=== PATIENT | female | born 1970 | race Caucasian/White ===

== ENCOUNTER 2017-10-28 12:25 | Inpatient (IN) | payer OTHER ==
[~2017-10-28] VITALS: Ht 149.9 cm; Wt 88.5 kg
[~2017-10-28 12:25] MED LIST: ADAL40PEN INJ; AMOX500 PO; ASPERCREME1 EACH TOP; ASPI81CH PO; B Complete1 EACH PO; CALCAVITD PO; CLON.1 PO; Cleocin HCl150 MG PO; DULO60 PO; ENOX30I INJ; ENOX40I SC; HYDACE5 PO; HYDMOR2 PO; IBUP600 PO; IBUP800 PO; LABE100; LABE200; LEFL20 PO; LISI5 PO; MEDR150I IM; MELO7.5 PO; METTREX2.5 PO; NAPR220; NAPR500 PO; NAPR550 PO; Norco 5-325 Ta1 EACH PO; Norco 7.5-3251 EACH PO; OXYC10TA19 PO; OXYC30 PO; PAROEX473 ML MM; PRED10 PO; PRED5 PO; PROM25 PO; Percocet 5-3251 EACH PO; SULF500 PO; TRAM50 PO; Ultram50 MG PO; Valium5 MG PO; ZESTORETIC 20-121 E1 PO; Zofran Odt4 MG PO
[2017-10-28 13:05] LABS: BASOPHILS ABSOLUTE AUTO 0.09 K/mm3 (0.00-0.23); BASOPHILS PERCENT AUTO 1 % (0-2); EOSINOPHILS ABSOLUTE AUTO 0.46 K/mm3 (0.00-0.68); EOSINOPHILS PERCENT AUTO 4 % (0-6); Hematocrit 38.9 % (33.0-51.0); Hemoglobin 12.7 g/dL (11.5-16.0); IMMATURE GRAN ABSOLUTE AUTO 0.06 K/mm3 (0.00-0.10); IMMATURE GRAN PERCENT AUTO 1 % (0-1); LYMPHOCYTES ABSOLUTE AUTO 2.15 K/mm3 (0.84-5.20); LYMPHOCYTES PERCENT AUTO 19 % (21-46); MONOCYTES PERCENT AUTO 5 % (4-13); Mean Corpuscular HGB 30.5 pg (26.0-34.0); Mean Corpuscular HGB Conc 32.6 g/dL (31.5-36.5); Mean Corpuscular Volume 93 fL (80-100); NEUTROPHILS ABSOLUTE AUTO 7.88 K/mm3 (1.96-9.15); NEUTROPHILS PERCENT AUTO 71 % (41-73); RDW Coefficient Variation 13.5 % (11.7-14.2); RDW Standard Deviation 45.8 fL (35.1-46.3); Red Blood Cell Count 4.17 M/mm3 (3.80-5.20); White Blood Cell Count 11.14 K/mm3 (4.00-11.30)
[2017-10-28 13:20] LABS: Alanine Aminotransfer (ALT/SGP 63 U/L (12-78); Albumin, Blood 3.7 g/dL (3.4-5.0); Albumin/Globulin Ratio 0.7 (0.8-1.8); Alk Phos 161 U/L (50-136); Anion Gap 11 mmol/L (6-16); Aspartate Aminotrans (AST/SGOT 38 U/L (12-37); Bilirubin, Total 0.3 mg/dL (0.1-1.0); Blood Urea Nitrogen 16 mg/dL (8-24); Bun/Creatinine Ratio 19.3 (12.0-20.0); CO2, Blood 23 mmol/L (21-32); Calcium, Blood 9.1 mg/dL (8.5-10.1); Chloride, Blood 106 mmol/L (98-108); Creatinine, Blood 0.83 mg/dL (0.40-1.00); Glomerular Filtration Rate >60 (60-); Glucose, Blood 112 mg/dL (70-99); Potassium, Blood 4.2 mmol/L (3.5-5.5); Sodium, Blood 140 mmol/L (136-145); Total Protein, Blood 8.7 g/dL (6.4-8.2); Troponin I <0.015 ng/mL (0.000-0.040)
[2017-10-28 13:26] LABS: Mean Platelet Volume 9.2 fL (9.1-12.4); Platelet Count 279 K/mm3 (150-400)
[2017-10-28 14:55] LABS: Source, Urine Clean Catch
[2017-10-28 14:57] LABS: Appearance, Urine Hazy (Clear); Bilirubin, Urine Neg (Neg); Blood, Urine 2+ (Neg); Color, Urine Yellow (P-Yellow); Glucose Qualitative, Urine Neg (Neg); Ketones, Urine Neg (Neg); Leukocyte Esterase, Urine Neg (Neg); Nitrite, Urine Neg (Neg); Protein, Urine 2+ (Neg); Urobilinogen, Urine NORM (Normal); pH, Urine 6.5 (5.0-8.0)
[2017-10-28 16:44] LABS: White Blood Cells, Urine 0-2 /hpf (0-5)
[2017-10-28 16:45] LABS: Squamous Epithelial Cells Mod /hpf (Few)
[2017-10-28 16:46] LABS: Bacteria Few /hpf
[2017-10-28] MEDS ORDERED: Prozac20 MG (19:39)
[2017-10-28] MEDS ORDERED: MELO7.5 PO (19:39)
[2017-10-29 02:04] LABS: BASOPHILS ABSOLUTE AUTO 0.05 K/mm3 (0.00-0.23); BASOPHILS PERCENT AUTO 0 % (0-2); EOSINOPHILS ABSOLUTE AUTO 0.03 K/mm3 (0.00-0.68); EOSINOPHILS PERCENT AUTO 0 % (0-6); Hematocrit 34.9 % (33.0-51.0); Hemoglobin 11.5 g/dL (11.5-16.0); IMMATURE GRAN ABSOLUTE AUTO 0.05 K/mm3 (0.00-0.10); IMMATURE GRAN PERCENT AUTO 0 % (0-1); LYMPHOCYTES ABSOLUTE AUTO 1.83 K/mm3 (0.84-5.20); LYMPHOCYTES PERCENT AUTO 16 % (21-46); MONOCYTES ABSOLUTE AUTO 0.71 K/mm3 (0.16-1.47); MONOCYTES PERCENT AUTO 6 % (4-13); Mean Corpuscular HGB 29.9 pg (26.0-34.0); Mean Corpuscular Volume 91 fL (80-100); Mean Platelet Volume 9.1 fL (9.1-12.4); NEUTROPHILS ABSOLUTE AUTO 8.46 K/mm3 (1.96-9.15); NEUTROPHILS PERCENT AUTO 76 % (41-73); Platelet Count 316 K/mm3 (150-400); RDW Coefficient Variation 13.7 % (11.7-14.2); RDW Standard Deviation 44.5 fL (35.1-46.3); Red Blood Cell Count 3.84 M/mm3 (3.80-5.20); White Blood Cell Count 11.13 K/mm3 (4.00-11.30)
[2017-10-29 02:09] LABS: Alanine Aminotransfer (ALT/SGP 50 U/L (12-78); Albumin, Blood 3.4 g/dL (3.4-5.0); Albumin/Globulin Ratio 0.8 (0.8-1.8); Alk Phos 129 U/L (50-136); Anion Gap 9 mmol/L (6-16); Aspartate Aminotrans (AST/SGOT 27 U/L (12-37); Bilirubin, Total 0.6 mg/dL (0.1-1.0); Blood Urea Nitrogen 17 mg/dL (8-24); CO2, Blood 26 mmol/L (21-32); Calcium, Blood 8.5 mg/dL (8.5-10.1); Chloride, Blood 104 mmol/L (98-108); Creatinine, Blood 0.77 mg/dL (0.40-1.00); Globulin, Blood 4.5 g/dL (2.2-4.0); Glomerular Filtration Rate >60 (60-); Glucose, Blood 95 mg/dL (70-99); Phosphorus, Blood 3.4 mg/dL (2.5-4.9); Potassium, Blood 3.6 mmol/L (3.5-5.5); Sodium, Blood 139 mmol/L (136-145); Total Protein, Blood 7.9 g/dL (6.4-8.2); Troponin I 0.024 ng/mL (0.000-0.040)
[2017-10-29 10:47] LABS: U Amphetamine Screen Not Detected; U Barbituate Screen Not Detected; U Benzodiazapine Screen Not Detected; U Buprenorphine Screen Not Detected; U Cannabinoids Screen DETECTED; U Cocaine Screen Not Detected; U Methadone Screen Not Detected; U Methamphetamine Screen Not Detected; U Opiates Screen Not Detected; U Oxycodone Screen Not Detected; U Phencyclidine Screen Not Detected; U Propoxyphene Screen Not Detected
[2017-10-30 05:47] LABS: Hematocrit 39.8 % (33.0-51.0); Hemoglobin 13.1 g/dL (11.5-16.0); Mean Corpuscular HGB 30.4 pg (26.0-34.0); Mean Corpuscular HGB Conc 32.9 g/dL (31.5-36.5); Mean Corpuscular Volume 92 fL (80-100); Mean Platelet Volume 9.1 fL (9.1-12.4); Platelet Count 304 K/mm3 (150-400); RDW Coefficient Variation 13.6 % (11.7-14.2); RDW Standard Deviation 46.2 fL (35.1-46.3); Red Blood Cell Count 4.31 M/mm3 (3.80-5.20); White Blood Cell Count 9.44 K/mm3 (4.00-11.30)
[2017-10-30 06:06] LABS: Anion Gap 9 mmol/L (6-16); Blood Urea Nitrogen 28 mg/dL (8-24); Bun/Creatinine Ratio 28.1 (12.0-20.0); CO2, Blood 28 mmol/L (21-32); Calcium, Blood 9.4 mg/dL (8.5-10.1); Chloride, Blood 100 mmol/L (98-108); Glomerular Filtration Rate >60 (60-); Glucose, Blood 94 mg/dL (70-99); Magnesium, Blood 2.3 mg/dL (1.6-2.4); Potassium, Blood 3.8 mmol/L (3.5-5.5); Sodium, Blood 137 mmol/L (136-145)
[2017-10-31 06:14] LABS: Very Low Density Lipoprot Chol 53 mg/dL (6-32)
[2017-10-31 06:15] LABS: Anion Gap 9 mmol/L (6-16); Blood Urea Nitrogen 40 mg/dL (8-24); Bun/Creatinine Ratio 28.8 (12.0-20.0); CHOL/HDL RATIO 6.2; CO2, Blood 30 mmol/L (21-32); Calcium, Blood 9.2 mg/dL (8.5-10.1); Chloride, Blood 96 mmol/L (98-108); Cholesterol 248 mg/dL (50-200); Creatinine, Blood 1.39 mg/dL (0.40-1.00); Glomerular Filtration Rate 43 (60-); Glucose, Blood 85 mg/dL (70-99); HDL Cholesterol 40 mg/dL (>39); LDL/HDL RATIO 3.9; Low Density Lipoprotein Chol 155 mg/dL (0-110); Potassium, Blood 3.5 mmol/L (3.5-5.5); Sodium, Blood 135 mmol/L (136-145); Triglycerides 265 mg/dL (30-160)
[2017-10-31] MEDS ORDERED: ASPI81CH PO (10:13)
[2017-10-31] MEDS ORDERED: ATOR40TA PO (10:14)
[2017-10-31] MEDS ORDERED: CARV6.25 PO (10:16)
[2017-10-31] MEDS ORDERED: ACETAMINOPHEN-1 EACH PO (10:19)
[2017-10-31] MEDS ORDERED: LISI20 PO (10:20)
[2017-10-31] MEDS ORDERED: SPIR25 PO (10:20)
[2017-10-31] MEDS ORDERED: TORSE20 PO (10:20)
[2017-11-01 06:28] LABS: Bun/Creatinine Ratio 29.9 (12.0-20.0); Calcium, Blood 9.2 mg/dL (8.5-10.1); Creatinine, Blood 1.54 mg/dL (0.40-1.00); Potassium, Blood 3.7 mmol/L (3.5-5.5)
[2017-11-01 11:26] LABS: Albumin, Blood 3.9 g/dL (3.4-5.0); Anion Gap 8 mmol/L (6-16); Blood Urea Nitrogen 46 mg/dL (8-24); Bun/Creatinine Ratio 28.4 (12.0-20.0); CO2, Blood 30 mmol/L (21-32); Calcium, Blood 9.2 mg/dL (8.5-10.1); Chloride, Blood 95 mmol/L (98-108); Creatinine, Blood 1.62 mg/dL (0.40-1.00); Glomerular Filtration Rate 36 (60-); Glucose, Blood 94 mg/dL (70-99); Magnesium, Blood 2.3 mg/dL (1.6-2.4); Phosphorus, Blood 5.4 mg/dL (2.5-4.9); Sodium, Blood 133 mmol/L (136-145)
[2017-11-01] MEDS ORDERED: SPIR25 PO (16:21)
== END 2017-11-01 18:17 | disposition home or self-care (01) | DRG 291 ==
LOC: ER 12:25 → MEDS 12:26 → PCU 12:26 → MEDS 10-29 16:52 → ENPENDDIS 10-31 08:43 → MEDS 11-01 18:17
PROVIDERS: Emergency Medicine; Family Medicine; Internal Medicine; Internal Medicine Cardiovascular Disease
DX: I11.0 Hypertensive heart disease with heart failure (principal); J96.00 Acute respiratory failure, unspecified whether with hypoxia or hypercapnia; N17.9 Acute kidney failure, unspecified; I16.0 Hypertensive urgency; I50.20 Unspecified systolic (congestive) heart failure; M06.9 Rheumatoid arthritis, unspecified; E78.5 Hyperlipidemia, unspecified; F32.9 Major depressive disorder, single episode, unspecified; E66.3 Overweight; Z68.39 Body mass index [BMI] 39.0-39.9, adult; I27.20 Pulmonary hypertension, unspecified; I34.0 Nonrheumatic mitral (valve) insufficiency; I42.0 Dilated cardiomyopathy; F41.9 Anxiety disorder, unspecified; R25.2 Cramp and spasm; T50.0X5A Adverse effect of mineralocorticoids and their antagonists, initial encounter; T50.1X5A Adverse effect of loop [high-ceiling] diuretics, initial encounter; T46.4X5A Adverse effect of angiotensin-converting-enzyme inhibitors, initial encounter; Y92.239 Unspecified place in hospital as the place of occurrence of the external cause; Z91.14 Patient's other noncompliance with medication regimen
CPT/HCPCS: 36415; 71046; 80048; 80053; 80061; 80069; 81001; 83735; 83880; 84100; 84132; 84484; 85025; 85027; 87493; 93005; 93010; 93306; 96374; 96375; 99285; J1650; J1940

== ENCOUNTER 2019-04-16 11:26 | Emergency (ER) | payer OTHER ==
[~2019-04-16] VITALS: Ht 152.4 cm; Wt 95.2 kg
[~2019-04-16 11:26] MED LIST changes: +ACETAMINOPHEN-1 EACH PO; +ATOR40TA PO; +CARV6.25 PO; +LISI20 PO; +Prozac20 MG; +SPIR25 PO; +TORSE20 PO
== END 2019-04-16 12:58 | disposition home or self-care (01) ==
LOC: ER 11:26
DX: H40.211 Acute angle-closure glaucoma, right eye (principal); F32.9 Major depressive disorder, single episode, unspecified; Z79.899 Other long term (current) drug therapy
CPT/HCPCS: 96372; 99284-25; J1170

== ENCOUNTER 2019-04-28 11:28 | Emergency (ER) | payer OTHER ==
[~2019-04-28] VITALS: Ht 685.8 cm; Wt 210.0 kg
[2019-04-28 13:19] LABS: BASOPHILS ABSOLUTE AUTO 0.05 K/mm3 (0.00-0.23); BASOPHILS PERCENT AUTO 1 % (0-2); EOSINOPHILS ABSOLUTE AUTO 0.66 K/mm3 (0.00-0.68); EOSINOPHILS PERCENT AUTO 10 % (0-6); Hematocrit 42.4 % (33.0-51.0); Hemoglobin 13.6 g/dL (11.5-16.0); IMMATURE GRAN ABSOLUTE AUTO 0.01 K/mm3 (0.00-0.10); IMMATURE GRAN PERCENT AUTO 0 % (0-1); LYMPHOCYTES PERCENT AUTO 24 % (21-46); MONOCYTES ABSOLUTE AUTO 0.42 K/mm3 (0.16-1.47); MONOCYTES PERCENT AUTO 6 % (4-13); Mean Corpuscular HGB 29.8 pg (26.0-34.0); Mean Corpuscular HGB Conc 32.1 g/dL (31.5-36.5); Mean Corpuscular Volume 93 fL (80-100); Mean Platelet Volume 9.4 fL (9.1-12.4); NEUTROPHILS ABSOLUTE AUTO 3.81 K/mm3 (1.96-9.15); NEUTROPHILS PERCENT AUTO 58 % (41-73); Platelet Count 259 K/mm3 (150-400); RDW Coefficient Variation 12.3 % (11.7-14.2); RDW Standard Deviation 41.9 fL (35.1-46.3); Red Blood Cell Count 4.56 M/mm3 (3.80-5.20); White Blood Cell Count 6.55 K/mm3 (4.00-11.30)
[2019-04-28 13:45] LABS: Alanine Aminotransfer (ALT/SGP 178 U/L (12-78); Albumin, Blood 3.8 g/dL (3.4-5.0); Albumin/Globulin Ratio 0.8 (0.8-1.8); Alk Phos 172 U/L (50-136); Anion Gap 3 mmol/L (6-16); Aspartate Aminotrans (AST/SGOT 77 U/L (12-37); Bilirubin, Total 0.3 mg/dL (0.1-1.0); Blood Urea Nitrogen 16 mg/dL (8-24); Bun/Creatinine Ratio 19.2 (12.0-20.0); CO2, Blood 28 mmol/L (21-32); Chloride, Blood 109 mmol/L (98-108); Creatinine, Blood 0.83 mg/dL (0.40-1.00); Globulin, Blood 4.5 g/dL (2.2-4.0); Glomerular Filtration Rate >60 (60-); Glucose, Blood 87 mg/dL (70-99); Sodium, Blood 140 mmol/L (136-145); Total Protein, Blood 8.3 g/dL (6.4-8.2); Troponin I <0.015 ng/mL (0.000-0.040)
[2019-04-28] MEDS ORDERED: MELO7.5 (16:18)
[2019-04-28] MEDS ORDERED: LISI20 PO (16:18)
[2019-04-28] MEDS ORDERED: DULO60 PO (16:19)
== END 2019-04-28 16:46 | disposition home or self-care (01) ==
LOC: ER 11:28
PROVIDERS: Physician Assistant
DX: I10 Essential (primary) hypertension (principal); K08.89 Other specified disorders of teeth and supporting structures; M06.9 Rheumatoid arthritis, unspecified; F32.9 Major depressive disorder, single episode, unspecified; E78.5 Hyperlipidemia, unspecified; Z79.899 Other long term (current) drug therapy
CPT/HCPCS: 36415; 71046; 80053; 84484; 85025; 93005; 93010; 96374; 96375; 99284-25; J0360; J1170; J1885; J2405; J2765

== ENCOUNTER 2020-02-29 13:09 | Day surgery (SDC) | payer OTHER ==
[~2020-02-29] VITALS: Ht 154.9 cm; Wt 103.5 kg
[~2020-02-29 13:09] MED LIST changes: +Aspirin EC81 MG PO; +CALCIUM 600-VI1 EAC2 PO; +CARV25 PO; +LOSA50 PO; +Leflunomide20 MG PO; +MELO7.5; +MYNEPHRON CAPSUL1 MG PO
--- NOTE | 2020-02-29 16:51 | NUR ---
02/29/20 1651 PATY RIVERA PATIENT TO STEP DOWN, INTO RECLINER. VSS EXCEPT PT HYPERTENSIVE 193/94, AFTER PAIN MEDICATIONS - BP 175/90. (bASELINE 157/71) IV PATENT. PAT WOULD PREFER NOT TO HAVE BOYFRIEND BACK AT THIS TIME. PT MEDICATED FOR NAUSE WITH IV ZOFRAN (LATER REPORTS NAUSEA IS "IN MY HEAD") MEDICATED WITH IV DILAUDID PER MD ORDERS FOR SEVERE PAIN
== END 2020-02-29 17:25 | disposition home or self-care (01) ==
LOC: ORSCSDS 13:09
PROVIDERS: Podiatrist Foot & Ankle Surgery
PROC: 0SGJ04Z Fusion of Left Tarsal Joint with Internal Fixation Device, Open Approach (ICD-10-PCS; principal; 2020-02-29 14:30)
PROC: 0SGL04Z Fusion of Left Tarsometatarsal Joint with Internal Fixation Device, Open Approach (ICD-10-PCS; principal; 2020-02-29 14:30)
DX: M13.872 Other specified arthritis, left ankle and foot (principal); M12.872 Other specific arthropathies, not elsewhere classified, left ankle and foot; I10 Essential (primary) hypertension; E66.01 Morbid (severe) obesity due to excess calories; Z68.41 Body mass index [BMI] 40.0-44.9, adult; Z79.899 Other long term (current) drug therapy; Z79.82 Long term (current) use of aspirin
CPT/HCPCS: A9270; C1713; C1769; J0171; J0690; J1100; J1170; J2250; J2405; J2704; J2765; J3010; J7120

== ENCOUNTER 2021-05-11 00:12 | Day surgery (SDC) | payer OTHER ==
[~2021-05-11 00:12] MED LIST changes: +ATOR20 PO; +DULO60; +IBUP200 PO
[2021-05-11 14:01] LABS: BASOPHILS ABSOLUTE AUTO 0.07 K/mm3 (0.00-0.23); BASOPHILS PERCENT AUTO 1 % (0-2); EOSINOPHILS ABSOLUTE AUTO 0.34 K/mm3 (0.00-0.68); EOSINOPHILS PERCENT AUTO 4 % (0-6); Hemoglobin 11.3 g/dL (11.5-16.0); IMMATURE GRAN ABSOLUTE AUTO 0.03 K/mm3 (0.00-0.10); IMMATURE GRAN PERCENT AUTO 0 % (0-1); LYMPHOCYTES ABSOLUTE AUTO 1.23 K/mm3 (0.84-5.20); LYMPHOCYTES PERCENT AUTO 14 % (21-46); MONOCYTES ABSOLUTE AUTO 0.55 K/mm3 (0.16-1.47); MONOCYTES PERCENT AUTO 6 % (4-13); Mean Corpuscular HGB 27.7 pg (26.0-34.0); Mean Corpuscular HGB Conc 33.2 g/dL (31.5-36.5); Mean Corpuscular Volume 83 fL (80-100); Mean Platelet Volume 8.6 fL (9.1-12.4); NEUTROPHILS ABSOLUTE AUTO 6.46 K/mm3 (1.96-9.15); NEUTROPHILS PERCENT AUTO 75 % (41-73); Platelet Count 357 K/mm3 (150-400); RDW Coefficient Variation 13.4 % (11.7-14.2); RDW Standard Deviation 40.7 fL (35.1-46.3); Red Blood Cell Count 4.08 M/mm3 (3.80-5.20); White Blood Cell Count 8.68 K/mm3 (4.00-11.30)
[2021-05-11] MEDS ORDERED: LOSARTAN POTAS100 MG PO (14:21)
== END 2021-05-11 16:45 | disposition home or self-care (01) ==
LOC: ATC 00:12
PROVIDERS: Internal Medicine Hematology & Oncology
DX: M05.9 Rheumatoid arthritis with rheumatoid factor, unspecified (principal)
CPT/HCPCS: 84450; 85025; 85651; 96413; A9270; J7050; Q5103

== ENCOUNTER 2021-05-25 05:00 | Day surgery (SDC) | payer OTHER ==
[~2021-05-25] VITALS: Wt 99.8 kg
[~2021-05-25 05:00] MED LIST changes: +LOSARTAN POTAS100 MG PO
--- NOTE | 2021-05-25 09:49 | NUR ---
LABS DRAWN FROM IV START PER PROTOCOL
[2021-05-25 10:00] LABS: BASOPHILS ABSOLUTE AUTO 0.09 K/mm3 (0.00-0.23); BASOPHILS PERCENT AUTO 1 % (0-2); EOSINOPHILS ABSOLUTE AUTO 0.52 K/mm3 (0.00-0.68); EOSINOPHILS PERCENT AUTO 6 % (0-6); Hematocrit 38.8 % (33.0-51.0); Hemoglobin 12.6 g/dL (11.5-16.0); IMMATURE GRAN ABSOLUTE AUTO 0.03 K/mm3 (0.00-0.10); IMMATURE GRAN PERCENT AUTO 0 % (0-1); LYMPHOCYTES ABSOLUTE AUTO 2.35 K/mm3 (0.84-5.20); LYMPHOCYTES PERCENT AUTO 29 % (21-46); MONOCYTES ABSOLUTE AUTO 0.65 K/mm3 (0.16-1.47); MONOCYTES PERCENT AUTO 8 % (4-13); Mean Corpuscular HGB 27.9 pg (26.0-34.0); Mean Corpuscular HGB Conc 32.5 g/dL (31.5-36.5); Mean Corpuscular Volume 86 fL (80-100); Mean Platelet Volume 9.2 fL (9.1-12.4); NEUTROPHILS ABSOLUTE AUTO 4.48 K/mm3 (1.96-9.15); NEUTROPHILS PERCENT AUTO 55 % (41-73); Platelet Count 321 K/mm3 (150-400); RDW Standard Deviation 46.2 fL (35.1-46.3); Red Blood Cell Count 4.51 M/mm3 (3.80-5.20); White Blood Cell Count 8.12 K/mm3 (4.00-11.30)
[2021-05-25] MEDS ORDERED: METO25ER PO (10:33)
[2021-05-25] MEDS ORDERED: GABA300 PO (10:34)
[2021-05-25] MEDS ORDERED: METTREX2.5 PO (10:35)
[2021-05-25] MEDS ORDERED: MELO7.5 PO (10:35)
[2021-05-25] MEDS ORDERED: Percocet 5-3251 EACH PO (10:36)
[2021-05-25] MEDS ORDERED: Norco 7.5-3251 EACH PO (10:37)
--- NOTE | 2021-05-25 10:52 | NUR ---
PT REPORTS HAVING CHORNIC ELEVATED BP'S. AWARE. MD HAS PT CONTINUING HER LOSARTAN AND HAS ADDED ON 25MG OF METOPROLOL. PT TO FOLLOW UP ON SATURDAY WITH PCP REGARDING BP. PT HAS ALSO NOT BEEN TAKING HER PAIN MEDICATION SINCE AND REPORTS BEING IN A LOT OF PAIN. SHE WILL ALSO BE FOLLOWING UP ON SATURDAY WITH PCP REGARDING PAIN. FAR 100.0 TEMP, PT STATES SHE ALWAYS RUNS WARM. WILL CONTINUE TO MONITOR. PT HAS RECEIVED 500MG TYLENOL PO. IF TEMP RISES WILL CALL MD FOR ADDITIONAL ORDERS. PT IS ASYMPTOMATIC WITH ELEVATED BP. WILL CONTINUE TO MONITOR.
== END 2021-05-25 12:05 | disposition home or self-care (01) ==
LOC: ATC 05:00
PROVIDERS: Internal Medicine Rheumatology
DX: M05.9 Rheumatoid arthritis with rheumatoid factor, unspecified (principal)
CPT/HCPCS: 84450; 85025; 85651; 96413; 96415; A9270; J7050; Q5103

== ENCOUNTER 2021-08-01 04:53 | Day surgery (SDC) | payer OTHER ==
[~2021-08-01] VITALS: Wt 101.5 kg
[~2021-08-01 04:53] MED LIST changes: +GABA300 PO; +METO25ER PO
[2021-08-01 09:42] LABS: BASOPHILS ABSOLUTE AUTO 0.08 K/mm3 (0.00-0.23); BASOPHILS PERCENT AUTO 1 % (0-2); EOSINOPHILS ABSOLUTE AUTO 0.61 K/mm3 (0.00-0.68); EOSINOPHILS PERCENT AUTO 9 % (0-6); Hematocrit 38.6 % (33.0-51.0); Hemoglobin 12.8 g/dL (11.5-16.0); IMMATURE GRAN ABSOLUTE AUTO 0.03 K/mm3 (0.00-0.10); IMMATURE GRAN PERCENT AUTO 0 % (0-1); LYMPHOCYTES ABSOLUTE AUTO 1.83 K/mm3 (0.84-5.20); LYMPHOCYTES PERCENT AUTO 27 % (21-46); MONOCYTES ABSOLUTE AUTO 0.76 K/mm3 (0.16-1.47); MONOCYTES PERCENT AUTO 11 % (4-13); Mean Corpuscular HGB Conc 33.2 g/dL (31.5-36.5); Mean Corpuscular Volume 87 fL (80-100); Mean Platelet Volume 9.2 fL (9.1-12.4); NEUTROPHILS ABSOLUTE AUTO 3.57 K/mm3 (1.96-9.15); NEUTROPHILS PERCENT AUTO 52 % (41-73); Platelet Count 294 K/mm3 (150-400); RDW Standard Deviation 48.7 fL (35.1-46.3); Red Blood Cell Count 4.42 M/mm3 (3.80-5.20); White Blood Cell Count 6.88 K/mm3 (4.00-11.30)
== END 2021-08-01 11:30 | disposition home or self-care (01) ==
LOC: ATC 04:53
PROVIDERS: Internal Medicine Rheumatology
DX: M05.9 Rheumatoid arthritis with rheumatoid factor, unspecified (principal)
CPT/HCPCS: 84450; 85025; 85651; 96413; 96415; A9270; J7050; Q5103

== ENCOUNTER 2021-08-07 17:21 | Emergency (ER) | payer OTHER ==
[~2021-08-07] VITALS: Ht 157.5 cm; Wt 99.8 kg
== END 2021-08-07 17:40 | disposition home or self-care (01) ==
LOC: ER 17:21
DX: F41.9 Anxiety disorder, unspecified (principal); I10 Essential (primary) hypertension; E78.5 Hyperlipidemia, unspecified; Z79.899 Other long term (current) drug therapy
CPT/HCPCS: 99283

== ENCOUNTER 2021-09-26 02:50 | Day surgery (SDC) | payer OTHER ==
[~2021-09-26] VITALS: Wt 98.7 kg
[2021-09-26 09:58] LABS: BASOPHILS ABSOLUTE AUTO 0.07 K/mm3 (0.00-0.23); BASOPHILS PERCENT AUTO 1 % (0-2); EOSINOPHILS ABSOLUTE AUTO 0.43 K/mm3 (0.00-0.68); EOSINOPHILS PERCENT AUTO 6 % (0-6); Hematocrit 40.3 % (33.0-51.0); Hemoglobin 13.5 g/dL (11.5-16.0); IMMATURE GRAN ABSOLUTE AUTO 0.02 K/mm3 (0.00-0.10); IMMATURE GRAN PERCENT AUTO 0 % (0-1); LYMPHOCYTES ABSOLUTE AUTO 1.26 K/mm3 (0.84-5.20); LYMPHOCYTES PERCENT AUTO 18 % (21-46); MONOCYTES ABSOLUTE AUTO 0.48 K/mm3 (0.16-1.47); MONOCYTES PERCENT AUTO 7 % (4-13); Mean Corpuscular HGB 29.9 pg (26.0-34.0); Mean Corpuscular HGB Conc 33.5 g/dL (31.5-36.5); Mean Corpuscular Volume 89 fL (80-100); Mean Platelet Volume 8.6 fL (9.1-12.4); NEUTROPHILS ABSOLUTE AUTO 4.92 K/mm3 (1.96-9.15); NEUTROPHILS PERCENT AUTO 69 % (41-73); Platelet Count 302 K/mm3 (150-400); RDW Coefficient Variation 13.2 % (11.7-14.2); Red Blood Cell Count 4.51 M/mm3 (3.80-5.20); White Blood Cell Count 7.18 K/mm3 (4.00-11.30)
[2021-09-26] MEDS ORDERED: HYDCHL25 PO (10:28)
== END 2021-09-26 11:57 | disposition home or self-care (01) ==
LOC: ATC 02:50
PROVIDERS: Internal Medicine Rheumatology
DX: M05.9 Rheumatoid arthritis with rheumatoid factor, unspecified (principal)
CPT/HCPCS: 84450; 85025; 85651; A9270; J7050; Q5103

== ENCOUNTER 2021-12-25 01:50 | Day surgery (SDC) | payer OTHER ==
[~2021-12-25] VITALS: Wt 102.6 kg
[~2021-12-25 01:50] MED LIST changes: +HYDCHL25 PO
[2021-12-25 14:14] LABS: BASOPHILS ABSOLUTE AUTO 0.04 K/mm3 (0.00-0.23); BASOPHILS PERCENT AUTO 1 % (0-2); EOSINOPHILS ABSOLUTE AUTO 0.44 K/mm3 (0.00-0.68); EOSINOPHILS PERCENT AUTO 5 % (0-6); Hematocrit 31.8 % (33.0-51.0); Hemoglobin 10.3 g/dL (11.5-16.0); IMMATURE GRAN ABSOLUTE AUTO 0.04 K/mm3 (0.00-0.10); IMMATURE GRAN PERCENT AUTO 1 % (0-1); LYMPHOCYTES PERCENT AUTO 16 % (21-46); MONOCYTES ABSOLUTE AUTO 0.64 K/mm3 (0.16-1.47); MONOCYTES PERCENT AUTO 8 % (4-13); Mean Corpuscular HGB 28.1 pg (26.0-34.0); Mean Corpuscular HGB Conc 32.4 g/dL (31.5-36.5); Mean Corpuscular Volume 87 fL (80-100); Mean Platelet Volume 8.9 fL (9.1-12.4); NEUTROPHILS ABSOLUTE AUTO 5.71 K/mm3 (1.96-9.15); NEUTROPHILS PERCENT AUTO 70 % (41-73); Platelet Count 317 K/mm3 (150-400); RDW Coefficient Variation 13.4 % (11.7-14.2); RDW Standard Deviation 42.1 fL (35.1-46.3); Red Blood Cell Count 3.66 M/mm3 (3.80-5.20); White Blood Cell Count 8.17 K/mm3 (4.00-11.30)
== END 2021-12-25 16:15 | disposition home or self-care (01) ==
LOC: ATC 01:50
PROVIDERS: Internal Medicine Rheumatology
DX: M05.9 Rheumatoid arthritis with rheumatoid factor, unspecified (principal); I11.0 Hypertensive heart disease with heart failure; I50.9 Heart failure, unspecified; E78.5 Hyperlipidemia, unspecified; I10 Essential (primary) hypertension
CPT/HCPCS: 84450; 85025; 85651; A9270; J7050; Q5103

== ENCOUNTER 2022-03-13 01:33 | Day surgery (SDC) | payer OTHER | END 2022-03-13 16:48 | disposition home or self-care (01) | LOC: ATC 01:33 | DX: M05.9 Rheumatoid arthritis with rheumatoid factor, unspecified (principal); E78.5 Hyperlipidemia, unspecified; M25.511 Pain in right shoulder; M25.512 Pain in left shoulder | CPT/HCPCS: A9270; J7050; Q5103 ==

== ENCOUNTER 2022-03-19 13:00 | Inpatient (IN) | payer OTHER ==
[~2022-03-19] VITALS: Ht 154.9 cm; Wt 99.3 kg
[2022-03-19 15:13] LABS: BASOPHILS ABSOLUTE AUTO 0.06 K/mm3 (0.00-0.23); BASOPHILS PERCENT AUTO 0 % (0-2); EOSINOPHILS ABSOLUTE AUTO 0.36 K/mm3 (0.00-0.68); EOSINOPHILS PERCENT AUTO 3 % (0-6); Hematocrit 34.8 % (33.0-51.0); Hemoglobin 11.6 g/dL (11.5-16.0); IMMATURE GRAN ABSOLUTE AUTO 0.07 K/mm3 (0.00-0.10); IMMATURE GRAN PERCENT AUTO 1 % (0-1); LYMPHOCYTES ABSOLUTE AUTO 1.48 K/mm3 (0.84-5.20); LYMPHOCYTES PERCENT AUTO 11 % (21-46); MONOCYTES ABSOLUTE AUTO 1.18 K/mm3 (0.16-1.47); MONOCYTES PERCENT AUTO 8 % (4-13); Mean Corpuscular HGB 27.7 pg (26.0-34.0); Mean Corpuscular HGB Conc 33.3 g/dL (31.5-36.5); Mean Corpuscular Volume 83 fL (80-100); Mean Platelet Volume 8.7 fL (9.1-12.4); NEUTROPHILS ABSOLUTE AUTO 10.83 K/mm3 (1.96-9.15); NEUTROPHILS PERCENT AUTO 78 % (41-73); Platelet Count 384 K/mm3 (150-400); RDW Coefficient Variation 14.1 % (11.7-14.2); RDW Standard Deviation 42.2 fL (35.1-46.3); Red Blood Cell Count 4.19 M/mm3 (3.80-5.20); White Blood Cell Count 13.98 K/mm3 (4.00-11.30)
[2022-03-19 15:43] LABS: Albumin, Blood 3.2 g/dL (3.4-5.0); Albumin/Globulin Ratio 0.6 (0.8-1.8); Bilirubin, Total 0.2 mg/dL (0.1-1.0); Bun/Creatinine Ratio 20.7 (12.0-20.0); Calcium, Blood 9.5 mg/dL (8.5-10.1); Creatinine, Blood 0.92 mg/dL (0.40-1.00); Globulin, Blood 5.4 g/dL (2.2-4.0); Potassium, Blood 3.8 mmol/L (3.5-5.5); Total Protein, Blood 8.6 g/dL (6.4-8.2)
[2022-03-19 20:44] LABS: Body Fluid Crystals NEG (NEGATIVE)
[2022-03-19 21:09] LABS: BODY FLUID RBC 0.015 M/mm3 (0-0)
[2022-03-19 21:36] LABS: RBC Count, Synovial Fluid 15000 /mm3 (0-0); WBC Count, Synovial Fluid >200000 /mm3 (0-180)
[2022-03-19 21:39] LABS: Appearance, Synovial Fluid Cloudy (Clear); Color, Synovial Fluid Pale Yellow (None-P Yel)
[2022-03-19 21:57] LABS: Lymphs, Synovial Fluid 2 % (0-15); Monocytes/Macrophages, Synovia 8 % (0-65); Neutrophils, Synovial Fluid 90 % (0-24)
[2022-03-20] MEDS ORDERED: RENFLEXIS100 M1 IV ×2 (01:26)
[2022-03-20] MEDS ORDERED: ASPI325 PO ×2 (01:27)
--- NOTE | 2022-03-20 02:24 | NUR ---
PT NEW ER ADMIT FOR SEPTIC ARTHRITIS OF LEFT HAND/WRIST. PT A/O, DENIES DIZZINESS/FEVER. LEFT HAND AND WRIST RED/SWOLLEN, GOLF CART ATTENDANT WEAK, PT DENIES N/T. PT REP PAIN W/MVMT. LUE ELEVATED ON PILLOWS. PT MED FOR PAIN PER EMAR. PT ORIENTED TO ROOM/CALL LIGHT AND NPO STATUS. IVF STARTED PER ORDERS. AWAITING ORTHO CONSULT.
[2022-03-20 06:01] LABS: BASOPHILS ABSOLUTE AUTO 0.04 K/mm3 (0.00-0.23); BASOPHILS PERCENT AUTO 0 % (0-2); EOSINOPHILS ABSOLUTE AUTO 0.22 K/mm3 (0.00-0.68); EOSINOPHILS PERCENT AUTO 2 % (0-6); Hemoglobin 10.6 g/dL (11.5-16.0); IMMATURE GRAN ABSOLUTE AUTO 0.03 K/mm3 (0.00-0.10); IMMATURE GRAN PERCENT AUTO 0 % (0-1); LYMPHOCYTES ABSOLUTE AUTO 1.61 K/mm3 (0.84-5.20); LYMPHOCYTES PERCENT AUTO 17 % (21-46); MONOCYTES ABSOLUTE AUTO 0.98 K/mm3 (0.16-1.47); MONOCYTES PERCENT AUTO 11 % (4-13); Mean Corpuscular HGB 27.7 pg (26.0-34.0); Mean Corpuscular HGB Conc 32.1 g/dL (31.5-36.5); Mean Corpuscular Volume 86 fL (80-100); Mean Platelet Volume 8.7 fL (9.1-12.4); NEUTROPHILS ABSOLUTE AUTO 6.48 K/mm3 (1.96-9.15); NEUTROPHILS PERCENT AUTO 69 % (41-73); Platelet Count 325 K/mm3 (150-400); RDW Coefficient Variation 14.3 % (11.7-14.2); RDW Standard Deviation 44.2 fL (35.1-46.3); Red Blood Cell Count 3.83 M/mm3 (3.80-5.20); White Blood Cell Count 9.36 K/mm3 (4.00-11.30)
[2022-03-20 06:02] LABS: International Normalized Ratio 1.11; Prothrombin Time Results 11.6 Sec (9.7-11.5)
[2022-03-20 06:10] LABS: Bun/Creatinine Ratio 25.4 (12.0-20.0); Calcium, Blood 8.5 mg/dL (8.5-10.1); Creatinine, Blood 0.83 mg/dL (0.40-1.00); Potassium, Blood 3.5 mmol/L (3.5-5.5)
--- NOTE | 2022-03-20 06:22 | NUR ---
PT VSS SINCE ARRIVING TO FLOOR. PAIN MGD PER EMAR, ICE AND ELEVATION ENC FOR COMFORT PT MARCO. PT DENIED CHANGES IN SENSATION. PT NPO, AWAITING ORTHO CONSULT. IVF CONT PER ORDERS.
--- NOTE | 2022-03-20 11:49 | NUR ---
AT APROX 1015 PT C/O WORSENING PAIN IN L HAND AND INCREASING HEADACHE. DR CHAIDEZ CONTACTED, NEW ORDER FOR 0.5 DILAUDID Q4 AND ANOTHER 10MG IVP APRESOLINE FOR BP 170/102. RECHECK BP IMPROVED WELL PAIN DOWN TO 6/10 FROM 02/26. PT STILL C/O HEADACH. PLAN FOR OR AT APROX 1330 W/DR CHOUDHARY
--- NOTE | 2022-03-20 12:16 | NUR ---
PT C/O "SPITTING HEADACH, FEELS LIKE MY HEAD IS GOING TO EXPLODE". DR CHOUDHARY CALLED FOR OK TO ADMINISTER TORADOL PRIOR TO OR. PT ALSO DRINKS CAFFINE DAILY AND HAS NOT HAD ANY SINCE YESTERDAY AM. WILL RECHECK BP IN APROX 1 HR.
--- NOTE | 2022-03-20 13:55 | NUR ---
THE PATIENT WAS BROUGHT TO DAY SURGERY FOR HER PROCEDURE.
--- NOTE | 2022-03-20 19:46 | NUR ---
PT ARRIVED BACK TO UNIT AT APROX 1730. DARSHAN WRAP TO L HAND C/D/I. PT APPEARS TO BE RESTING COMFORTABLY UPON ARRIVAL TO UNIT.
[2022-03-21 05:37] LABS: BASOPHILS ABSOLUTE AUTO 0.01 K/mm3 (0.00-0.23); BASOPHILS PERCENT AUTO 0 % (0-2); EOSINOPHILS PERCENT AUTO 0 % (0-6); Hematocrit 32.7 % (33.0-51.0); Hemoglobin 10.3 g/dL (11.5-16.0); IMMATURE GRAN ABSOLUTE AUTO 0.05 K/mm3 (0.00-0.10); IMMATURE GRAN PERCENT AUTO 1 % (0-1); LYMPHOCYTES ABSOLUTE AUTO 1.12 K/mm3 (0.84-5.20); LYMPHOCYTES PERCENT AUTO 13 % (21-46); MONOCYTES ABSOLUTE AUTO 0.65 K/mm3 (0.16-1.47); MONOCYTES PERCENT AUTO 7 % (4-13); Mean Corpuscular HGB 26.9 pg (26.0-34.0); Mean Corpuscular HGB Conc 31.5 g/dL (31.5-36.5); Mean Corpuscular Volume 85 fL (80-100); Mean Platelet Volume 8.4 fL (9.1-12.4); NEUTROPHILS ABSOLUTE AUTO 7.04 K/mm3 (1.96-9.15); NEUTROPHILS PERCENT AUTO 79 % (41-73); Platelet Count 423 K/mm3 (150-400); RDW Coefficient Variation 14.7 % (11.7-14.2); RDW Standard Deviation 45.4 fL (35.1-46.3); Red Blood Cell Count 3.83 M/mm3 (3.80-5.20); White Blood Cell Count 8.87 K/mm3 (4.00-11.30)
[2022-03-21 06:10] LABS: Bun/Creatinine Ratio 24.4 (12.0-20.0); Calcium, Blood 9.1 mg/dL (8.5-10.1); Creatinine, Blood 0.66 mg/dL (0.40-1.00); Potassium, Blood 3.5 mmol/L (3.5-5.5)
[2022-03-21 06:16] LABS: Vancomycin, Trough 29.7 ug/mL (5.0-10.0)
--- NOTE | 2022-03-21 06:23 | NUR ---
POD 1 S/P I&D OF LEFT WRIST. PT BP ELEVATED EARLY IN SHIFT, PT ASYMPTOMATIC, PRN HYDRALAZINE GIVEN W/NOTED IMPROVEMENT. DRESSING CDI, FINGERS APPEAR MORE SWOLLEN THIS AM, ELEVATION ENC. CAP REFILL WNL, PT DENIED CHANGES IN SENSATION. PAIN MGD PER EMAR. PT INDEP IN ROOM.
[2022-03-21 10:52] LABS: Vancomycin, Trough 21.2 ug/mL (5.0-10.0)
--- NOTE | 2022-03-21 15:53 | NUR ---
PAIN CALLED HOSPITALIST FOR PAIN MANAGEMENT, BETH STILL REQUIRING IV BREAKTHROUGH PAIN MEDICATION AND IS COMPLAINING OF PAIN. HOSPITALIST STATES WILL LOOK INTO IT.
--- NOTE | 2022-03-21 16:23 | NUR ---
SHIFT SUMMARY POD 1 FOR I&D OF L HAND. PACKING, GAUZE AND DARSHAN WRAP TO HAND, C/D/I. PATIENT ABLE TO WIGGLE ALL FINGERS, DENIES N/T. SWELLING IN FINGERS NOTED. PINK WARM TO TOUCH. HAS FULL SENSATION. INDEPENDENT IN ROOM, VOIDS EASILY. MEDICATED FOR PAIN. WAITING FOR CALL BACK FROM HOSPITALIST ON NEW PAIN MEDICATION ORDERS SEE PREVIOUS NOTE. VSS. CALLS APROPRIATELY.
[2022-03-22 05:48] LABS: BASOPHILS ABSOLUTE AUTO 0.05 K/mm3 (0.00-0.23); BASOPHILS PERCENT AUTO 1 % (0-2); EOSINOPHILS ABSOLUTE AUTO 0.27 K/mm3 (0.00-0.68); EOSINOPHILS PERCENT AUTO 3 % (0-6); Hematocrit 31.8 % (33.0-51.0); Hemoglobin 10.1 g/dL (11.5-16.0); IMMATURE GRAN ABSOLUTE AUTO 0.02 K/mm3 (0.00-0.10); IMMATURE GRAN PERCENT AUTO 0 % (0-1); LYMPHOCYTES ABSOLUTE AUTO 2.92 K/mm3 (0.84-5.20); LYMPHOCYTES PERCENT AUTO 32 % (21-46); MONOCYTES ABSOLUTE AUTO 0.92 K/mm3 (0.16-1.47); MONOCYTES PERCENT AUTO 10 % (4-13); Mean Corpuscular HGB 27.5 pg (26.0-34.0); Mean Corpuscular HGB Conc 31.8 g/dL (31.5-36.5); Mean Corpuscular Volume 87 fL (80-100); Mean Platelet Volume 8.7 fL (9.1-12.4); NEUTROPHILS ABSOLUTE AUTO 4.85 K/mm3 (1.96-9.15); NEUTROPHILS PERCENT AUTO 54 % (41-73); Platelet Count 412 K/mm3 (150-400); RDW Coefficient Variation 14.6 % (11.7-14.2); RDW Standard Deviation 47.4 fL (35.1-46.3); Red Blood Cell Count 3.67 M/mm3 (3.80-5.20); White Blood Cell Count 9.03 K/mm3 (4.00-11.30)
[2022-03-22 06:08] LABS: Calcium, Blood 9.2 mg/dL (8.5-10.1); Creatinine, Blood 0.84 mg/dL (0.40-1.00); Potassium, Blood 4.1 mmol/L (3.5-5.5)
--- NOTE | 2022-03-22 08:04 | NUR ---
SUMMARY PT REQUIRING CHANGE OF MEDS THIS SHIFT FOR ADEQUATE PAIN CONTROL. ALTHOUGH PELON DID NOT LAST 6 HRS ORDERED. SPOKE WITH THIS AM AND ORDER WAS CHANGE TO PERCOCET 10 MG Q 4 PRN. PT TEARFUL AT PRESENT AND DAY RN WILL GIVE TORADOL WELL.CSM STILL INTACT TO FINGERS.
--- NOTE | 2022-03-22 11:39 | NUR ---
DR CHOUDHARY IN TO SEE PT CHANGED DRESSING TO LUE.
--- NOTE | 2022-03-22 17:31 | NUR ---
Report from plant operator/shift supervisor stated pt's pain not adequately controlled with oxycodone every 6 hrs. Order changed to percocet 10mg every 4 hrs. Pts pain level was controlled throughout shift. gave verbal order for dressing change Q shift with plain 1/4inch packing strip, sterile 4x4's, chicken skin, and dante bandage. Order was input into chart and Dr. Isaacs did todays dressing change. Pt stated several bowel movements today. Tolerating PO intake and call light in reach. Independent in room.
--- NOTE | 2022-03-22 18:26 | NUR ---
SUMMARY NO ACUTE CHANGES T/O SHIFT. DR CHOUDHARY CHANGED DRESSING TO LUE THIS SHIFT. PT TOLERATED FAIR. PREMEDICATED W/DILAUDID. DRESSING TO LUE CDI. PT HAS HAD PAIN T/O SHIFT. MEDICATED PER ORDERS AND SUPPLIED ICE PACK FOR COMFORT. REPORTING MULTIPLE BMS. INDEPENDENT IN ROOM. CALL LIGHT IN REACH.
[2022-03-23 04:56] LABS: BASOPHILS ABSOLUTE AUTO 0.07 K/mm3 (0.00-0.23); BASOPHILS PERCENT AUTO 1 % (0-2); EOSINOPHILS ABSOLUTE AUTO 0.45 K/mm3 (0.00-0.68); EOSINOPHILS PERCENT AUTO 6 % (0-6); Hemoglobin 9.8 g/dL (11.5-16.0); IMMATURE GRAN ABSOLUTE AUTO 0.03 K/mm3 (0.00-0.10); IMMATURE GRAN PERCENT AUTO 0 % (0-1); LYMPHOCYTES ABSOLUTE AUTO 1.85 K/mm3 (0.84-5.20); LYMPHOCYTES PERCENT AUTO 26 % (21-46); MONOCYTES ABSOLUTE AUTO 0.58 K/mm3 (0.16-1.47); MONOCYTES PERCENT AUTO 8 % (4-13); Mean Corpuscular HGB 27.5 pg (26.0-34.0); Mean Corpuscular HGB Conc 31.6 g/dL (31.5-36.5); Mean Corpuscular Volume 87 fL (80-100); Mean Platelet Volume 8.3 fL (9.1-12.4); NEUTROPHILS ABSOLUTE AUTO 4.11 K/mm3 (1.96-9.15); NEUTROPHILS PERCENT AUTO 58 % (41-73); Platelet Count 345 K/mm3 (150-400); RDW Coefficient Variation 14.1 % (11.7-14.2); RDW Standard Deviation 45.1 fL (35.1-46.3); Red Blood Cell Count 3.57 M/mm3 (3.80-5.20); White Blood Cell Count 7.09 K/mm3 (4.00-11.30)
[2022-03-23 05:12] LABS: Calcium, Blood 8.9 mg/dL (8.5-10.1); Creatinine, Blood 0.72 mg/dL (0.40-1.00); Potassium, Blood 3.9 mmol/L (3.5-5.5)
--- NOTE | 2022-03-23 05:54 | NUR ---
SHIFT SUMMARY: A&OX4. INDEPENDENT IN ROOM. REPORTED LOOSE BM DURING DAY SHIFT, REPORTS THEY HAVE SINCE SLOWED DOWN. C/O INCREASED PAIN T/O THE SHIFT THAT WAS MANAGED WITH EMAR ORDERS AND UNINTERRUPTED REST. ATTEMPTED TO REPOSITION ARM AND PROVIDE COMFORT. TOLERATING PO FLUIDS AND FOOD AT THIS TIME. DENIES N/V. VOIDING. DRESSING REMAINS IN PLACE ON L WRIST. RESTING WITH CALL LIGHT IN REACH.
[2022-03-23] MEDS ORDERED: Percocet 10-321 EACH PO ×2 (12:52)
[2022-03-23] MEDS ORDERED: CEFTRIAXONE2 G1 IV ×2 (12:53)
[2022-03-23] MEDS ORDERED: Acetaminophen650 M1 PO ×2 (12:53)
[2022-03-23] MEDS ORDERED: VISBIOME 112.51 EACH PO ×2 (12:54)
[2022-03-23] MEDS ORDERED: Cefpodoxime Pr200 MG PO ×2 (12:57)
--- NOTE | 2022-03-23 13:57 | NUR ---
DISCHARGE NOTE: PATIENT AND PATIENTS BOYFRIEND WERE EDUCATED ON DISCHARGE INSTRUCTIONS. BOTH VERBALIZED UNDERSTANDING OF INSTRUCTIONS AND HAD NO FURTHER QUESTIONS. PATIENTS JESSIIDE IS STAYING IN SINCE SHE WILL BE RECIEVEING IV ABX INFUSIONS IN THE NEHAL AND FLUSHES AND IS NOW SALINE LOCKED. PAIN IS MANAGED WITH PO PAIN MEDICATIONS. DENIES NUMBNESS AND TINGLING IN ALL EXTREMITIES. SHE IS ABLE TO MOVE HER FINGERS AND TOES. DRESSING ON HER LEFT WRIST WAS JUST CHANGED AND IS C/D/I. SHE IS TOLERATING PO INTAKE AND IS VOIDING/HAVING BMS. PATIENT IS DRESSED AND HAS PERSONAL ITEMS IN THE ROOM GATHERED. SHE REFUSES TO BE WHEELCHAIRED OUT SO SHE IS WALKING WITH HER BOYFRIEND TO HIS CAR TO BE TAKEN HOME.
--- NOTE | 2022-03-24 11:18 | NUR ---
[facility] TO [facility] PROVIDER NAME ON PRESCRIPTION
== END 2022-03-23 14:00 | disposition home or self-care (01) | DRG 513 ==
LOC: ER 13:00 → SURS 03-20 00:51 → MEDS 03-20 00:51 → SURS 03-20 00:55
PROVIDERS: Family Medicine; Orthopaedic Surgery; Physician Assistant; Student in an Organized Health Care Education/Training Program; ADMIT Family Medicine
PROC: 0R9P3ZZ Drainage of Left Wrist Joint, Percutaneous Approach (ICD-10-PCS; 2022-03-19)
PROC: 3E03329 Introduction of Other Anti-infective into Peripheral Vein, Percutaneous Approach (ICD-10-PCS; 2022-03-20)
PROC: 0RBP0ZZ Excision of Left Wrist Joint, Open Approach (ICD-10-PCS; principal; 2022-03-20 13:30)
DX: M00.232 Other streptococcal arthritis, left wrist (principal); D84.9 Immunodeficiency, unspecified; I42.0 Dilated cardiomyopathy; I50.42 Chronic combined systolic (congestive) and diastolic (congestive) heart failure; M06.9 Rheumatoid arthritis, unspecified; F32.A Depression, unspecified; M79.2 Neuralgia and neuritis, unspecified; R19.7 Diarrhea, unspecified; I11.0 Hypertensive heart disease with heart failure; H40.9 Unspecified glaucoma; Z96.653 Presence of artificial knee joint, bilateral; Z79.899 Other long term (current) drug therapy; Z79.02 Long term (current) use of antithrombotics/antiplatelets; Z79.891 Long term (current) use of opiate analgesic; Z98.890 Other specified postprocedural states; Z90.49 Acquired absence of other specified parts of digestive tract; Z79.82 Long term (current) use of aspirin
CPT/HCPCS: 20605; 36415; 73100; 73201; 80048; 80053; 80202; 83605; 85025; 85610; 85651; 86140; 86141; 87040; 87070; 87075; 87147; 87205; 89051; 89060; 93005; 93010; 96365-59; 96375-59; 96376-59; 99285-25; A9270; J0360; J0696; J1100; J1170; J1650; J1885; J2250; J2405; J2704; J3010; J3370; J7050; J7120; Q9967

== ENCOUNTER 2022-03-24 00:46 | Day surgery (SDC) | payer OTHER ==
[~2022-03-24 00:46] MED LIST changes: +ASPI325 PO; +Acetaminophen650 M1 PO; +CEFTRIAXONE2 G1 IV; +Cefpodoxime Pr200 MG PO; +Percocet 10-321 EACH PO; +RENFLEXIS100 M1 IV; +VISBIOME 112.51 EACH PO
--- NOTE | 2022-03-24 14:24 | NUR ---
WOUND DRESSING CHANGE: PT HAD BEEN INSTRUCTED TO DO DAILY DRESSING CHANGES ON HER L WRIST BUT WAS UNABLE TO DO SO BECAUSE OF THE LOCATION OF THE WOUND. THE DRESSING WAS REMOVED, SALINE WAS USED TO LOOSEN THE PACKING, THEN IT WAS CAREFULLY REMOVED BY THIS RN. ZELDA BUSTAMANTE, SURGICAL FLOOR BRAIDER SETTER DRESSED WOUND WITH 1/4" PLAIN PACKING, STERILE GAUZE, KERLEX AND DARSHAN WRAP. PT WILL F/U NEXT WEEK WITH DR CHOUDHARY AND THE [facility]
== END 2022-03-24 11:20 | disposition home or self-care (01) ==
LOC: ATC 00:46
DX: M00.849 Arthritis due to other bacteria, unspecified hand (principal); F32.A Depression, unspecified; I10 Essential (primary) hypertension
CPT/HCPCS: J0696

== ENCOUNTER 2022-03-25 02:36 | Day surgery (SDC) | payer OTHER | END 2022-03-25 10:57 | disposition home or self-care (01) | LOC: ATC 02:36 | DX: M00.9 Pyogenic arthritis, unspecified (principal); M05.9 Rheumatoid arthritis with rheumatoid factor, unspecified; I10 Essential (primary) hypertension | CPT/HCPCS: 96374; J0696 ==

== ENCOUNTER 2022-03-26 02:07 | Day surgery (SDC) | payer OTHER | END 2022-03-26 09:09 | disposition home or self-care (01) | LOC: ATC 02:07 | DX: M05.9 Rheumatoid arthritis with rheumatoid factor, unspecified (principal); I10 Essential (primary) hypertension | CPT/HCPCS: 96374; J0696 ==

== ENCOUNTER 2022-03-26 02:08 | Day surgery (SDC) | payer OTHER | END 2022-03-26 22:55 | disposition home or self-care (01) | LOC: WOUND 02:08 | DX: T81.89XA Other complications of procedures, not elsewhere classified, initial encounter (principal); M00.832 Arthritis due to other bacteria, left wrist; M05.30 Rheumatoid heart disease with rheumatoid arthritis of unspecified site | CPT/HCPCS: A9270; G0463 ==

== ENCOUNTER 2022-03-27 03:51 | Day surgery (SDC) | payer OTHER | END 2022-03-27 09:39 | disposition home or self-care (01) | LOC: ATC 03:51 | DX: M00.849 Arthritis due to other bacteria, unspecified hand (principal); F32.A Depression, unspecified; I10 Essential (primary) hypertension | CPT/HCPCS: J0696 ==

== ENCOUNTER 2022-03-28 02:16 | Day surgery (SDC) | payer OTHER | END 2022-03-28 23:22 | disposition home or self-care (01) | LOC: WOUND 02:16 | DX: S61.502D Unspecified open wound of left wrist, subsequent encounter (principal); M00.832 Arthritis due to other bacteria, left wrist; M05.30 Rheumatoid heart disease with rheumatoid arthritis of unspecified site | CPT/HCPCS: G0463 ==

== ENCOUNTER 2022-03-29 02:05 | Day surgery (SDC) | payer OTHER ==
--- NOTE | 2022-03-29 14:23 | NUR ---
Encouraged pt to seek medical attention for her HTN. She reports she has an appointment with her PCP to evaluate her HTN. She states that she just came from the vet from having to euthanize her dog of 14 years.
== END 2022-03-29 14:08 | disposition home or self-care (01) ==
LOC: ATC 02:05
DX: M00.9 Pyogenic arthritis, unspecified (principal); M06.9 Rheumatoid arthritis, unspecified; I10 Essential (primary) hypertension; Z96.653 Presence of artificial knee joint, bilateral
CPT/HCPCS: 96374; J0696

== ENCOUNTER 2022-03-30 00:48 | Day surgery (SDC) | payer OTHER | END 2022-03-30 14:13 | disposition home or self-care (01) | LOC: ATC 00:48 | DX: M00.9 Pyogenic arthritis, unspecified (principal); M06.9 Rheumatoid arthritis, unspecified; I10 Essential (primary) hypertension | CPT/HCPCS: 96374; J0696 ==

== ENCOUNTER 2022-03-30 01:07 | Day surgery (SDC) | payer OTHER | END 2022-03-30 23:12 | disposition home or self-care (01) | LOC: WOUND 01:07 | DX: T81.89XA Other complications of procedures, not elsewhere classified, initial encounter (principal); M00.832 Arthritis due to other bacteria, left wrist; M05.30 Rheumatoid heart disease with rheumatoid arthritis of unspecified site | CPT/HCPCS: A9270; G0463 ==

== ENCOUNTER 2022-04-01 02:13 | Day surgery (SDC) | payer OTHER | END 2022-04-01 11:31 | disposition home or self-care (01) | LOC: ATC 02:13 | DX: M00.9 Pyogenic arthritis, unspecified (principal); M06.9 Rheumatoid arthritis, unspecified; I10 Essential (primary) hypertension; Z96.653 Presence of artificial knee joint, bilateral | CPT/HCPCS: 96374; J0696 ==

== ENCOUNTER 2022-04-02 01:38 | Day surgery (SDC) | payer OTHER ==
[2022-04-03] MEDS ORDERED: CEFP200 PO (11:25)
== END 2022-04-02 23:34 | disposition home or self-care (01) ==
LOC: WOUND 01:38
DX: T81.89XA Other complications of procedures, not elsewhere classified, initial encounter (principal); M00.832 Arthritis due to other bacteria, left wrist; M05.30 Rheumatoid heart disease with rheumatoid arthritis of unspecified site
CPT/HCPCS: A9270

== ENCOUNTER 2022-04-03 11:04 | Day surgery (SDC) | payer OTHER ==
[2022-04-03] MEDS ORDERED: CEFP200 PO (11:25)
== END 2022-04-03 11:20 | disposition home or self-care (01) ==
LOC: ATC 11:04
DX: M00.849 Arthritis due to other bacteria, unspecified hand (principal); F32.A Depression, unspecified; I10 Essential (primary) hypertension
CPT/HCPCS: 96374; J0696

== ENCOUNTER 2022-04-04 02:26 | Day surgery (SDC) | payer OTHER ==
[~2022-04-04 02:26] MED LIST changes: +CEFP200 PO
== END 2022-04-04 23:29 | disposition home or self-care (01) ==
LOC: WOUND 02:26
DX: S61.502D Unspecified open wound of left wrist, subsequent encounter (principal); M00.832 Arthritis due to other bacteria, left wrist; M05.30 Rheumatoid heart disease with rheumatoid arthritis of unspecified site
CPT/HCPCS: G0463

== ENCOUNTER 2022-04-09 01:52 | Day surgery (SDC) | payer OTHER | END 2022-04-09 23:24 | disposition home or self-care (01) | LOC: WOUND 01:52 | DX: S61.502D Unspecified open wound of left wrist, subsequent encounter (principal); M00.832 Arthritis due to other bacteria, left wrist; M05.30 Rheumatoid heart disease with rheumatoid arthritis of unspecified site ==

== ENCOUNTER → 2022-04-26 | Outpatient (CLI) | payer OTHER ==
[2022-04-26 19:07] LABS: BASOPHILS ABSOLUTE AUTO 0.08 K/mm3 (0.00-0.23); BASOPHILS PERCENT AUTO 1 % (0-2); EOSINOPHILS ABSOLUTE AUTO 0.47 K/mm3 (0.00-0.68); EOSINOPHILS PERCENT AUTO 4 % (0-6); Hematocrit 35.3 % (33.0-51.0); Hemoglobin 11.3 g/dL (11.5-16.0); IMMATURE GRAN ABSOLUTE AUTO 0.05 K/mm3 (0.00-0.10); IMMATURE GRAN PERCENT AUTO 1 % (0-1); LYMPHOCYTES ABSOLUTE AUTO 1.81 K/mm3 (0.84-5.20); LYMPHOCYTES PERCENT AUTO 17 % (21-46); MONOCYTES ABSOLUTE AUTO 0.71 K/mm3 (0.16-1.47); MONOCYTES PERCENT AUTO 7 % (4-13); Mean Corpuscular Volume 84 fL (80-100); Mean Platelet Volume 8.9 fL (9.1-12.4); NEUTROPHILS PERCENT AUTO 71 % (41-73); Platelet Count 411 K/mm3 (150-400); RDW Coefficient Variation 14.5 % (11.7-14.2); RDW Standard Deviation 44.6 fL (35.1-46.3); Red Blood Cell Count 4.19 M/mm3 (3.80-5.20); White Blood Cell Count 10.72 K/mm3 (4.00-11.30)
[2022-04-26 20:40] LABS: Albumin, Blood 3.3 g/dL (3.4-5.0); Albumin/Globulin Ratio 0.6 (0.8-1.8); Bilirubin, Total 0.2 mg/dL (0.1-1.0); Bun/Creatinine Ratio 24.6 (12.0-20.0); Calcium, Blood 9.2 mg/dL (8.5-10.1); Creatinine, Blood 0.77 mg/dL (0.40-1.00); Globulin, Blood 5.3 g/dL (2.2-4.0); Potassium, Blood 4.1 mmol/L (3.5-5.5); Total Protein, Blood 8.6 g/dL (6.4-8.2)
== END | disposition home or self-care (01) ==
LOC: LAB 14:10 → LAB SHORT 14:10
PROVIDERS: Internal Medicine Rheumatology
DX: M05.9 Rheumatoid arthritis with rheumatoid factor, unspecified (principal)
CPT/HCPCS: 80053; 85025; 85651

== ENCOUNTER → 2022-09-26 | Outpatient (CLI) | payer OTHER ==
[2022-09-26 17:51] LABS: BASOPHILS PERCENT AUTO 1 % (0-2); EOSINOPHILS ABSOLUTE AUTO 0.87 K/mm3 (0.00-0.68); EOSINOPHILS PERCENT AUTO 8 % (0-6); Hematocrit 38.4 % (33.0-51.0); Hemoglobin 12.2 g/dL (11.5-16.0); IMMATURE GRAN ABSOLUTE AUTO 0.04 K/mm3 (0.00-0.10); IMMATURE GRAN PERCENT AUTO 0 % (0-1); LYMPHOCYTES ABSOLUTE AUTO 2.81 K/mm3 (0.84-5.20); LYMPHOCYTES PERCENT AUTO 25 % (21-46); MONOCYTES ABSOLUTE AUTO 0.77 K/mm3 (0.16-1.47); MONOCYTES PERCENT AUTO 7 % (4-13); Mean Corpuscular HGB 25.6 pg (26.0-34.0); Mean Corpuscular HGB Conc 31.8 g/dL (31.5-36.5); Mean Corpuscular Volume 81 fL (80-100); Mean Platelet Volume 9.1 fL (9.1-12.4); NEUTROPHILS PERCENT AUTO 59 % (41-73); Platelet Count 407 K/mm3 (150-400); RDW Coefficient Variation 14.8 % (11.7-14.2); RDW Standard Deviation 43.2 fL (35.1-46.3); Red Blood Cell Count 4.77 M/mm3 (3.80-5.20); White Blood Cell Count 11.09 K/mm3 (4.00-11.30)
[2022-09-26 19:39] LABS: Albumin, Blood 3.6 g/dL (3.4-5.0); Albumin/Globulin Ratio 0.8 (0.8-1.8); Bilirubin, Total 0.3 mg/dL (0.1-1.0); Bun/Creatinine Ratio 28.2 (12.0-20.0); Calcium, Blood 9.4 mg/dL (8.5-10.1); Creatinine, Blood 0.78 mg/dL (0.40-1.00); Globulin, Blood 4.8 g/dL (2.2-4.0); Total Protein, Blood 8.4 g/dL (6.4-8.2)
== END | disposition home or self-care (01) ==
LOC: LAB 15:30 → LAB SHORT 15:30
PROVIDERS: Internal Medicine Rheumatology
DX: M05.9 Rheumatoid arthritis with rheumatoid factor, unspecified (principal)
CPT/HCPCS: 80053; 85025; 85651

== ENCOUNTER 2022-11-28 01:45 | Day surgery (SDC) | payer OTHER ==
[2022-11-28 14:30] VITALS: BP 188/111
[2022-11-28 15:24] LABS: BASOPHILS ABSOLUTE AUTO 0.06 K/mm3 (0.00-0.23); BASOPHILS PERCENT AUTO 1 % (0-2); EOSINOPHILS ABSOLUTE AUTO 0.58 K/mm3 (0.00-0.68); EOSINOPHILS PERCENT AUTO 5 % (0-6); Hematocrit 37.9 % (33.0-51.0); Hemoglobin 12.5 g/dL (11.5-16.0); IMMATURE GRAN ABSOLUTE AUTO 0.06 K/mm3 (0.00-0.10); IMMATURE GRAN PERCENT AUTO 1 % (0-1); LYMPHOCYTES ABSOLUTE AUTO 2.78 K/mm3 (0.84-5.20); LYMPHOCYTES PERCENT AUTO 26 % (21-46); MONOCYTES ABSOLUTE AUTO 0.79 K/mm3 (0.16-1.47); MONOCYTES PERCENT AUTO 7 % (4-13); Mean Corpuscular HGB 26.7 pg (26.0-34.0); Mean Corpuscular Volume 81 fL (80-100); Mean Platelet Volume 8.9 fL (9.1-12.4); NEUTROPHILS ABSOLUTE AUTO 6.51 K/mm3 (1.96-9.15); NEUTROPHILS PERCENT AUTO 60 % (41-73); Platelet Count 387 K/mm3 (150-400); RDW Coefficient Variation 15.6 % (11.7-14.2); RDW Standard Deviation 45.6 fL (35.1-46.3); Red Blood Cell Count 4.69 M/mm3 (3.80-5.20); White Blood Cell Count 10.78 K/mm3 (4.00-11.30)
[2022-11-28 15:46] LABS: Albumin, Blood 3.5 g/dL (3.4-5.0); Albumin/Globulin Ratio 0.7 (0.8-1.8); Bilirubin, Total 0.2 mg/dL (0.1-1.0); Bun/Creatinine Ratio 17.4 (12.0-20.0); Creatinine, Blood 0.69 mg/dL (0.40-1.00); Globulin, Blood 5.1 g/dL (2.2-4.0); Total Protein, Blood 8.6 g/dL (6.4-8.2)
== END 2022-11-28 15:43 | disposition home or self-care (01) ==
LOC: ATC 01:45
PROVIDERS: Internal Medicine Rheumatology
DX: M05.9 Rheumatoid arthritis with rheumatoid factor, unspecified (principal)
CPT/HCPCS: 80053; 85025; 85651; 96365; J0129-JA

== ENCOUNTER 2022-12-12 01:32 | Day surgery (SDC) | payer OTHER ==
[2022-12-12 14:40] VITALS: BP 124/91
[2022-12-12 15:10] LABS: BASOPHILS ABSOLUTE AUTO 0.06 K/mm3 (0.00-0.23); BASOPHILS PERCENT AUTO 1 % (0-2); EOSINOPHILS PERCENT AUTO 3 % (0-6); Hematocrit 39.3 % (33.0-51.0); Hemoglobin 13.1 g/dL (11.5-16.0); IMMATURE GRAN ABSOLUTE AUTO 0.07 K/mm3 (0.00-0.10); IMMATURE GRAN PERCENT AUTO 1 % (0-1); LYMPHOCYTES ABSOLUTE AUTO 2.14 K/mm3 (0.84-5.20); LYMPHOCYTES PERCENT AUTO 19 % (21-46); MONOCYTES ABSOLUTE AUTO 0.69 K/mm3 (0.16-1.47); MONOCYTES PERCENT AUTO 6 % (4-13); Mean Corpuscular HGB 26.8 pg (26.0-34.0); Mean Corpuscular HGB Conc 33.3 g/dL (31.5-36.5); Mean Corpuscular Volume 81 fL (80-100); Mean Platelet Volume 8.7 fL (9.1-12.4); NEUTROPHILS ABSOLUTE AUTO 7.93 K/mm3 (1.96-9.15); NEUTROPHILS PERCENT AUTO 71 % (41-73); Platelet Count 396 K/mm3 (150-400); RDW Coefficient Variation 15.4 % (11.7-14.2); RDW Standard Deviation 44.4 fL (35.1-46.3); Red Blood Cell Count 4.88 M/mm3 (3.80-5.20); White Blood Cell Count 11.19 K/mm3 (4.00-11.30)
[2022-12-12 15:38] LABS: Albumin, Blood 3.8 g/dL (3.4-5.0); Albumin/Globulin Ratio 0.7 (0.8-1.8); Bilirubin, Total 0.2 mg/dL (0.1-1.0); Bun/Creatinine Ratio 17.4 (12.0-20.0); Calcium, Blood 9.3 mg/dL (8.5-10.1); Creatinine, Blood 1.15 mg/dL (0.40-1.00); Globulin, Blood 5.1 g/dL (2.2-4.0); Potassium, Blood 3.4 mmol/L (3.5-5.5); Total Protein, Blood 8.9 g/dL (6.4-8.2)
== END 2022-12-12 15:40 | disposition home or self-care (01) ==
LOC: ATC 01:32
PROVIDERS: Internal Medicine Rheumatology
DX: M05.9 Rheumatoid arthritis with rheumatoid factor, unspecified (principal); I11.0 Hypertensive heart disease with heart failure; I50.9 Heart failure, unspecified; E78.5 Hyperlipidemia, unspecified; Z79.82 Long term (current) use of aspirin; Z79.899 Other long term (current) drug therapy
CPT/HCPCS: 80053; 85025; 85651; 96365; J0129-JA

== ENCOUNTER 2023-01-14 01:19 | Day surgery (SDC) | payer OTHER ==
[2023-01-14 13:18] VITALS: BP 147/89
[2023-01-14 14:12] LABS: BASOPHILS ABSOLUTE AUTO 0.12 K/mm3 (0.00-0.23); BASOPHILS PERCENT AUTO 1 % (0-2); EOSINOPHILS ABSOLUTE AUTO 0.76 K/mm3 (0.00-0.68); EOSINOPHILS PERCENT AUTO 5 % (0-6); Hematocrit 37.1 % (33.0-51.0); Hemoglobin 12.6 g/dL (11.5-16.0); IMMATURE GRAN ABSOLUTE AUTO 0.07 K/mm3 (0.00-0.10); IMMATURE GRAN PERCENT AUTO 1 % (0-1); LYMPHOCYTES ABSOLUTE AUTO 3.59 K/mm3 (0.84-5.20); LYMPHOCYTES PERCENT AUTO 25 % (21-46); MONOCYTES PERCENT AUTO 10 % (4-13); Mean Corpuscular HGB 27.8 pg (26.0-34.0); Mean Corpuscular Volume 82 fL (80-100); Mean Platelet Volume 9.1 fL (9.1-12.4); NEUTROPHILS ABSOLUTE AUTO 8.25 K/mm3 (1.96-9.15); NEUTROPHILS PERCENT AUTO 58 % (41-73); Platelet Count 386 K/mm3 (150-400); RDW Coefficient Variation 14.7 % (11.7-14.2); RDW Standard Deviation 44.1 fL (35.1-46.3); Red Blood Cell Count 4.53 M/mm3 (3.80-5.20); White Blood Cell Count 14.19 K/mm3 (4.00-11.30)
[2023-01-14 14:20] LABS: Albumin, Blood 3.8 g/dL (3.4-5.0); Albumin/Globulin Ratio 0.8 (0.8-1.8); Bilirubin, Total 0.4 mg/dL (0.1-1.0); Bun/Creatinine Ratio 19.5 (12.0-20.0); Calcium, Blood 9.3 mg/dL (8.5-10.1); Creatinine, Blood 0.82 mg/dL (0.40-1.00); Globulin, Blood 4.7 g/dL (2.2-4.0); Total Protein, Blood 8.5 g/dL (6.4-8.2)
== END 2023-01-14 14:38 | disposition home or self-care (01) ==
LOC: ATC 01:19
PROVIDERS: Internal Medicine Rheumatology
DX: M05.9 Rheumatoid arthritis with rheumatoid factor, unspecified (principal); E78.2 Mixed hyperlipidemia; I11.0 Hypertensive heart disease with heart failure; I50.9 Heart failure, unspecified; Z79.82 Long term (current) use of aspirin; Z79.899 Other long term (current) drug therapy
CPT/HCPCS: 80053; 85025; 85651; 96365; J0129-JA

== ENCOUNTER → 2023-03-07 | Outpatient (CLI) | payer OTHER ==
[2023-03-07 16:15] LABS: BASOPHILS ABSOLUTE AUTO 0.11 K/mm3 (0.00-0.23); BASOPHILS PERCENT AUTO 1 % (0-2); EOSINOPHILS ABSOLUTE AUTO 0.54 K/mm3 (0.00-0.68); EOSINOPHILS PERCENT AUTO 4 % (0-6); Hematocrit 37.2 % (33.0-51.0); Hemoglobin 12.7 g/dL (11.5-16.0); IMMATURE GRAN PERCENT AUTO 1 % (0-1); LYMPHOCYTES ABSOLUTE AUTO 3.22 K/mm3 (0.84-5.20); LYMPHOCYTES PERCENT AUTO 25 % (21-46); MONOCYTES PERCENT AUTO 8 % (4-13); Mean Corpuscular HGB 28.7 pg (26.0-34.0); Mean Corpuscular HGB Conc 34.1 g/dL (31.5-36.5); Mean Corpuscular Volume 84 fL (80-100); Mean Platelet Volume 8.9 fL (9.1-12.4); NEUTROPHILS ABSOLUTE AUTO 7.75 K/mm3 (1.96-9.15); NEUTROPHILS PERCENT AUTO 61 % (41-73); Platelet Count 442 K/mm3 (150-400); RDW Coefficient Variation 13.3 % (11.7-14.2); RDW Standard Deviation 40.5 fL (35.1-46.3); Red Blood Cell Count 4.42 M/mm3 (3.80-5.20); White Blood Cell Count 12.72 K/mm3 (4.00-11.30)
[2023-03-07 17:19] LABS: Albumin, Blood 3.7 g/dL (3.4-5.0); Albumin/Globulin Ratio 0.7 (0.8-1.8); Bilirubin, Total 0.3 mg/dL (0.1-1.0); Creatinine, Blood 0.93 mg/dL (0.40-1.00); Globulin, Blood 5.2 g/dL (2.2-4.0); Potassium, Blood 3.3 mmol/L (3.5-5.5); Total Protein, Blood 8.9 g/dL (6.4-8.2)
== END | disposition home or self-care (01) ==
LOC: LAB 14:16 → LAB SHORT 14:16
PROVIDERS: Internal Medicine Rheumatology
DX: M05.9 Rheumatoid arthritis with rheumatoid factor, unspecified (principal)
CPT/HCPCS: 80053; 85025; 85651

== ENCOUNTER 2023-04-09 02:56 | Day surgery (SDC) | payer OTHER ==
[2023-04-09 15:15] VITALS: BP 119/83
[2023-04-09 15:31] LABS: BASOPHILS ABSOLUTE AUTO 0.07 K/mm3 (0.00-0.23); BASOPHILS PERCENT AUTO 1 % (0-2); EOSINOPHILS ABSOLUTE AUTO 0.88 K/mm3 (0.00-0.68); EOSINOPHILS PERCENT AUTO 9 % (0-6); Hematocrit 36.6 % (33.0-51.0); Hemoglobin 12.4 g/dL (11.5-16.0); IMMATURE GRAN ABSOLUTE AUTO 0.04 K/mm3 (0.00-0.10); IMMATURE GRAN PERCENT AUTO 0 % (0-1); LYMPHOCYTES PERCENT AUTO 21 % (21-46); MONOCYTES ABSOLUTE AUTO 0.52 K/mm3 (0.16-1.47); MONOCYTES PERCENT AUTO 6 % (4-13); Mean Corpuscular HGB 29.5 pg (26.0-34.0); Mean Corpuscular HGB Conc 33.9 g/dL (31.5-36.5); Mean Corpuscular Volume 87 fL (80-100); Mean Platelet Volume 8.8 fL (9.1-12.4); NEUTROPHILS PERCENT AUTO 63 % (41-73); Platelet Count 328 K/mm3 (150-400); RDW Coefficient Variation 13.2 % (11.7-14.2); RDW Standard Deviation 41.7 fL (35.1-46.3); Red Blood Cell Count 4.21 M/mm3 (3.80-5.20); White Blood Cell Count 9.51 K/mm3 (4.00-11.30)
[2023-04-09 16:21] LABS: Albumin, Blood 3.6 g/dL (3.4-5.0); Albumin/Globulin Ratio 0.8 (0.8-1.8); Bilirubin, Total 0.3 mg/dL (0.1-1.0); Bun/Creatinine Ratio 30.3 (12.0-20.0); Calcium, Blood 9.3 mg/dL (8.5-10.1); Creatinine, Blood 0.93 mg/dL (0.40-1.00); Globulin, Blood 4.7 g/dL (2.2-4.0); Potassium, Blood 3.4 mmol/L (3.5-5.5); Total Protein, Blood 8.3 g/dL (6.4-8.2)
[2023-04-12 14:08] LABS: ALBUMIN 3.6 g/dL (2.9-4.4); ALPHA-1-GLOBULIN 0.3 g/dL (0.0-0.4); ALPHA-2-GLOBULIN 0.9 g/dL (0.4-1.0); BETA GLOBULIN 1.3 g/dL (0.7-1.3); GAMMA GLOBULIN 1.4 g/dL (0.4-1.8); GLOBULIN, TOTAL 3.9 g/dL (2.2-3.9); IMMUNOGLOBULIN A, QN, SERUM 253 mg/dL (87-352); IMMUNOGLOBULIN G, QN, SERUM 1453 mg/dL (586-1602); IMMUNOGLOBULIN M, QN, SERUM 88 mg/dL (26-217); M-SPIKE Not Observed g/dL (Not Observed); PROTEIN, TOTAL, SERUM 7.5 g/dL (6.0-8.5)
== END 2023-04-09 16:30 | disposition home or self-care (01) ==
LOC: ATC 02:56
PROVIDERS: Internal Medicine Rheumatology
DX: M05.9 Rheumatoid arthritis with rheumatoid factor, unspecified (principal); E78.5 Hyperlipidemia, unspecified; M54.12 Radiculopathy, cervical region; K76.89 Other specified diseases of liver
CPT/HCPCS: 80053; 82784; 83521; 84155; 84165; 85025; 85651; 86334; 96365; J0129-JA

== ENCOUNTER 2023-05-07 00:39 | Day surgery (SDC) | payer OTHER ==
[2023-05-07 15:09] VITALS: BP 128/96
[2023-05-07 15:48] LABS: BASOPHILS ABSOLUTE AUTO 0.08 K/mm3 (0.00-0.23); BASOPHILS PERCENT AUTO 1 % (0-2); EOSINOPHILS PERCENT AUTO 4 % (0-6); Hematocrit 40.2 % (33.0-51.0); Hemoglobin 13.5 g/dL (11.5-16.0); IMMATURE GRAN ABSOLUTE AUTO 0.05 K/mm3 (0.00-0.10); IMMATURE GRAN PERCENT AUTO 0 % (0-1); LYMPHOCYTES ABSOLUTE AUTO 2.28 K/mm3 (0.84-5.20); LYMPHOCYTES PERCENT AUTO 19 % (21-46); MONOCYTES PERCENT AUTO 7 % (4-13); Mean Corpuscular HGB 29.2 pg (26.0-34.0); Mean Corpuscular HGB Conc 33.6 g/dL (31.5-36.5); Mean Corpuscular Volume 87 fL (80-100); Mean Platelet Volume 8.9 fL (9.1-12.4); NEUTROPHILS ABSOLUTE AUTO 8.06 K/mm3 (1.96-9.15); NEUTROPHILS PERCENT AUTO 69 % (41-73); Platelet Count 351 K/mm3 (150-400); RDW Coefficient Variation 13.3 % (11.7-14.2); RDW Standard Deviation 41.8 fL (35.1-46.3); Red Blood Cell Count 4.62 M/mm3 (3.80-5.20); White Blood Cell Count 11.77 K/mm3 (4.00-11.30)
[2023-05-07 16:36] LABS: Albumin, Blood 4.1 g/dL (3.4-5.0); Albumin/Globulin Ratio 0.9 (0.8-1.8); Bilirubin, Total 0.4 mg/dL (0.1-1.0); Bun/Creatinine Ratio 25.9 (12.0-20.0); Calcium, Blood 9.7 mg/dL (8.5-10.1); Creatinine, Blood 0.97 mg/dL (0.40-1.00); Globulin, Blood 4.6 g/dL (2.2-4.0); Potassium, Blood 3.2 mmol/L (3.5-5.5); Total Protein, Blood 8.7 g/dL (6.4-8.2)
== END 2023-05-07 16:20 | disposition home or self-care (01) ==
LOC: ATC 00:39
PROVIDERS: Internal Medicine Rheumatology
DX: M05.9 Rheumatoid arthritis with rheumatoid factor, unspecified (principal); F43.12 Post-traumatic stress disorder, chronic; E55.9 Vitamin D deficiency, unspecified; I11.0 Hypertensive heart disease with heart failure; I50.9 Heart failure, unspecified; M54.12 Radiculopathy, cervical region; R79.89 Other specified abnormal findings of blood chemistry; Z79.899 Other long term (current) drug therapy
CPT/HCPCS: 80053; 85025; 85651; 96365; J0129-JA

== ENCOUNTER 2023-06-06 00:03 | Day surgery (SDC) | payer OTHER ==
[2023-06-06 15:09] VITALS: BP 150/79
[2023-06-06] MEDS ORDERED: ABAT250V (15:11)
[2023-06-06 16:00] LABS: BASOPHILS ABSOLUTE AUTO 0.08 K/mm3 (0.00-0.23); BASOPHILS PERCENT AUTO 1 % (0-2); EOSINOPHILS ABSOLUTE AUTO 1.05 K/mm3 (0.00-0.68); EOSINOPHILS PERCENT AUTO 13 % (0-6); Hematocrit 37.7 % (33.0-51.0); Hemoglobin 12.7 g/dL (11.5-16.0); IMMATURE GRAN ABSOLUTE AUTO 0.03 K/mm3 (0.00-0.10); IMMATURE GRAN PERCENT AUTO 0 % (0-1); LYMPHOCYTES ABSOLUTE AUTO 2.05 K/mm3 (0.84-5.20); LYMPHOCYTES PERCENT AUTO 24 % (21-46); MONOCYTES ABSOLUTE AUTO 0.73 K/mm3 (0.16-1.47); MONOCYTES PERCENT AUTO 9 % (4-13); Mean Corpuscular HGB 29.7 pg (26.0-34.0); Mean Corpuscular HGB Conc 33.7 g/dL (31.5-36.5); Mean Corpuscular Volume 88 fL (80-100); Mean Platelet Volume 9.2 fL (9.1-12.4); NEUTROPHILS ABSOLUTE AUTO 4.46 K/mm3 (1.96-9.15); NEUTROPHILS PERCENT AUTO 53 % (41-73); Platelet Count 360 K/mm3 (150-400); RDW Coefficient Variation 13.2 % (11.7-14.2); RDW Standard Deviation 42.5 fL (35.1-46.3); Red Blood Cell Count 4.27 M/mm3 (3.80-5.20)
[2023-06-06 16:14] LABS: Albumin, Blood 3.4 g/dL (3.4-5.0); Albumin/Globulin Ratio 0.7 (0.8-1.8); Bilirubin, Total 0.2 mg/dL (0.1-1.0); Bun/Creatinine Ratio 19.6 (12.0-20.0); Calcium, Blood 9.4 mg/dL (8.5-10.1); Creatinine, Blood 0.77 mg/dL (0.40-1.00); Globulin, Blood 4.6 g/dL (2.2-4.0); Potassium, Blood 3.9 mmol/L (3.5-5.5)
== END 2023-06-06 16:16 | disposition home or self-care (01) ==
LOC: ATC 00:03
PROVIDERS: Internal Medicine Rheumatology
DX: M05.9 Rheumatoid arthritis with rheumatoid factor, unspecified (principal); E78.5 Hyperlipidemia, unspecified; I11.0 Hypertensive heart disease with heart failure; I50.9 Heart failure, unspecified; Z79.899 Other long term (current) drug therapy; Z79.82 Long term (current) use of aspirin
CPT/HCPCS: 80053; 85025; 85651; 96365; J0129-JA

== ENCOUNTER 2023-09-12 04:25 | Day surgery (SDC) | payer OTHER ==
[~2023-09-12 04:25] MED LIST changes: +ABAT250V
[2023-09-12] MEDS ORDERED: Abatacept/Maltose 750 MG in NS 100 ML IV SCH (06:00)
[2023-09-12 15:45] VITALS: BP 148/88
[2023-09-12 16:34] LABS: BASOPHILS ABSOLUTE AUTO 0.08 K/mm3 (0.00-0.23); BASOPHILS PERCENT AUTO 1 % (0-2); EOSINOPHILS ABSOLUTE AUTO 1.94 K/mm3 (0.00-0.68); EOSINOPHILS PERCENT AUTO 17 % (0-6); Hematocrit 37.2 % (33.0-51.0); Hemoglobin 12.7 g/dL (11.5-16.0); IMMATURE GRAN ABSOLUTE AUTO 0.04 K/mm3 (0.00-0.10); IMMATURE GRAN PERCENT AUTO 0 % (0-1); LYMPHOCYTES ABSOLUTE AUTO 3.22 K/mm3 (0.84-5.20); LYMPHOCYTES PERCENT AUTO 28 % (21-46); MONOCYTES ABSOLUTE AUTO 0.85 K/mm3 (0.16-1.47); MONOCYTES PERCENT AUTO 7 % (4-13); Mean Corpuscular HGB 30.3 pg (26.0-34.0); Mean Corpuscular HGB Conc 34.1 g/dL (31.5-36.5); Mean Corpuscular Volume 89 fL (80-100); Mean Platelet Volume 11.2 fL (9.1-12.4); NEUTROPHILS ABSOLUTE AUTO 5.37 K/mm3 (1.96-9.15); NEUTROPHILS PERCENT AUTO 47 % (41-73); Platelet Count 295 K/mm3 (150-400); RDW Coefficient Variation 14.1 % (11.7-14.2); Red Blood Cell Count 4.19 M/mm3 (3.80-5.20)
[2023-09-12 17:25] LABS: Albumin, Blood 3.4 g/dL (3.4-5.0); Albumin/Globulin Ratio 0.7 (0.8-1.8); Bilirubin, Total 0.4 mg/dL (0.1-1.0); Bun/Creatinine Ratio 20.3 (12.0-20.0); Calcium, Blood 9.5 mg/dL (8.5-10.1); Creatinine, Blood 0.84 mg/dL (0.40-1.00); Potassium, Blood 4.9 mmol/L (3.5-5.5); Total Protein, Blood 8.4 g/dL (6.4-8.2)
== END 2023-09-12 17:05 | disposition home or self-care (01) ==
LOC: ATC 04:25
PROVIDERS: Internal Medicine Rheumatology
DX: M05.9 Rheumatoid arthritis with rheumatoid factor, unspecified (principal); M54.12 Radiculopathy, cervical region; K76.89 Other specified diseases of liver; I11.0 Hypertensive heart disease with heart failure; I50.9 Heart failure, unspecified; E78.5 Hyperlipidemia, unspecified; Z79.82 Long term (current) use of aspirin; Z79.899 Other long term (current) drug therapy
CPT/HCPCS: 80053; 85025; 85651; 96365; J0129-JA

== ENCOUNTER 2023-11-13 02:57 | Day surgery (SDC) | payer OTHER ==
[2023-11-13] MEDS ORDERED: Abatacept/Maltose 750 MG in NS 100 ML IV SCH (06:00)
[2023-11-13 13:40] VITALS: BP 128/84
[2023-11-13 14:48] LABS: BASOPHILS ABSOLUTE AUTO 0.07 K/mm3 (0.00-0.23); BASOPHILS PERCENT AUTO 1 % (0-2); EOSINOPHILS ABSOLUTE AUTO 1.75 K/mm3 (0.00-0.68); EOSINOPHILS PERCENT AUTO 12 % (0-6); Hematocrit 37.8 % (33.0-51.0); Hemoglobin 12.6 g/dL (11.5-16.0); IMMATURE GRAN ABSOLUTE AUTO 0.08 K/mm3 (0.00-0.10); IMMATURE GRAN PERCENT AUTO 1 % (0-1); LYMPHOCYTES ABSOLUTE AUTO 2.82 K/mm3 (0.84-5.20); LYMPHOCYTES PERCENT AUTO 20 % (21-46); MONOCYTES ABSOLUTE AUTO 1.07 K/mm3 (0.16-1.47); MONOCYTES PERCENT AUTO 7 % (4-13); Mean Corpuscular HGB Conc 33.3 g/dL (31.5-36.5); Mean Corpuscular Volume 90 fL (80-100); Mean Platelet Volume 8.7 fL (9.1-12.4); NEUTROPHILS ABSOLUTE AUTO 8.69 K/mm3 (1.96-9.15); NEUTROPHILS PERCENT AUTO 60 % (41-73); Platelet Count 344 K/mm3 (150-400); RDW Coefficient Variation 13.2 % (11.7-14.2); RDW Standard Deviation 43.2 fL (35.1-46.3); White Blood Cell Count 14.48 K/mm3 (4.00-11.30)
[2023-11-13 14:54] LABS: Albumin, Blood 3.3 g/dL (3.4-5.0); Albumin/Globulin Ratio 0.7 (0.8-1.8); Bilirubin, Total 0.3 mg/dL (0.1-1.0); Bun/Creatinine Ratio 21.1 (12.0-20.0); Calcium, Blood 8.6 mg/dL (8.5-10.1); Creatinine, Blood 0.81 mg/dL (0.40-1.00); Globulin, Blood 4.8 g/dL (2.2-4.0); Potassium, Blood 3.6 mmol/L (3.5-5.5); Total Protein, Blood 8.1 g/dL (6.4-8.2)
== END 2023-11-13 15:00 | disposition home or self-care (01) ==
LOC: ATC 02:57
PROVIDERS: Internal Medicine Rheumatology
DX: M05.9 Rheumatoid arthritis with rheumatoid factor, unspecified (principal); E78.5 Hyperlipidemia, unspecified; E55.9 Vitamin D deficiency, unspecified; F43.12 Post-traumatic stress disorder, chronic; I11.0 Hypertensive heart disease with heart failure; I50.9 Heart failure, unspecified
CPT/HCPCS: 80053; 85025; 85651; 96365; J0129-JA

== ENCOUNTER → 2024-04-30 | Outpatient (CLI) | payer OTHER ==
[2024-04-30 17:45] LABS: BASOPHILS ABSOLUTE AUTO 0.07 K/mm3 (0.00-0.23); BASOPHILS PERCENT AUTO 1 % (0-2); EOSINOPHILS ABSOLUTE AUTO 2.23 K/mm3 (0.00-0.68); EOSINOPHILS PERCENT AUTO 15 % (0-6); Hematocrit 37.7 % (33.0-51.0); Hemoglobin 12.6 g/dL (11.5-16.0); IMMATURE GRAN ABSOLUTE AUTO 0.11 K/mm3 (0.00-0.10); IMMATURE GRAN PERCENT AUTO 1 % (0-1); LYMPHOCYTES ABSOLUTE AUTO 2.74 K/mm3 (0.84-5.20); LYMPHOCYTES PERCENT AUTO 19 % (21-46); MONOCYTES ABSOLUTE AUTO 1.05 K/mm3 (0.16-1.47); MONOCYTES PERCENT AUTO 7 % (4-13); Mean Corpuscular HGB Conc 33.4 g/dL (31.5-36.5); Mean Corpuscular Volume 90 fL (80-100); Mean Platelet Volume 8.9 fL (9.1-12.4); NEUTROPHILS ABSOLUTE AUTO 8.31 K/mm3 (1.96-9.15); NEUTROPHILS PERCENT AUTO 57 % (41-73); Platelet Count 380 K/mm3 (150-400); RDW Coefficient Variation 14.6 % (11.7-14.2); RDW Standard Deviation 47.9 fL (35.1-46.3); White Blood Cell Count 14.51 K/mm3 (4.00-11.30)
[2024-04-30 17:52] LABS: Albumin, Blood 3.5 g/dL (3.4-5.0); Albumin/Globulin Ratio 0.8 (0.8-1.8); Bilirubin, Total 0.3 mg/dL (0.1-1.0); Bun/Creatinine Ratio 17.4 (12.0-20.0); Calcium, Blood 9.3 mg/dL (8.5-10.1); Creatinine, Blood 1.09 mg/dL (0.40-1.00); Globulin, Blood 4.5 g/dL (2.2-4.0); Potassium, Blood 3.3 mmol/L (3.5-5.5)
== END | disposition home or self-care (01) ==
LOC: LAB SHORT 16:40 → LAB 16:40
PROVIDERS: Internal Medicine Rheumatology
DX: M05.9 Rheumatoid arthritis with rheumatoid factor, unspecified (principal)
CPT/HCPCS: 80053; 85025; 85651

== ENCOUNTER → 2024-05-01 | Outpatient (CLI) | payer OTHER ==
[2024-05-06 05:52] LABS: B PERTUSSIS/PARAPERTUSS SOURCE Nasopharyngeal; BORD PARAPERTUSSIS BY PCR Not Detected; BORDETELLA PERTUSSIS BY PCR Not Detected
== END ==
LOC: LAB 17:17 → LAB SHORT 17:17
DX: R05.3 Chronic cough (principal)
CPT/HCPCS: 87798

== ENCOUNTER 2024-09-27 17:08 | Inpatient (IN) | payer OTHER ==
[~2024-09-27] VITALS: Ht 162.6 cm; Wt 112.0 kg
[~2024-09-27 17:08] MED LIST changes: -LOSARTAN POTAS100 MG PO; +LOSARTAN-HCTZ1 EACH PO
[2024-09-27] MEDS ORDERED: Ipratropium/Albuterol SulF 2.5-0.5MG/3 ML Amp INH ONE (17:20)
[2024-09-27] MEDS ORDERED: Albuterol 2.5 MG/3 ML VIAL INH ONE (17:20)
[2024-09-27] MEDS ORDERED: MethylPREDNISolone Sod Succ 125 MG Vial IV ONE (17:30)
[2024-09-27] MEDS ORDERED: CefTRIAXone Sodium 2,000 MG in NS 100 ML IV ONE (17:30)
[2024-09-27 17:37] LABS: NRBC ABSOLUTE 0.02 K/mm3 (0.00-0.02); NRBC Auto 0.1 /100 WBC (0.0-0.2)
[2024-09-27 17:43] LABS: Base Excess Venous -2.5 mmol/L; Bicarbonate Venous 22.1 mmol/L (24.0-30.0); Mean Corpuscular HGB 29.6 pg (26.0-34.0); Mean Corpuscular HGB Conc 32.4 g/dL (31.5-36.5); Mean Corpuscular Volume 91 fL (80-100); Mean Platelet Volume 8.6 fL (9.1-12.4); PCO2 Venous 49.9 mmHg (38-42); Platelet Count 479 K/mm3 (150-400); RDW Coefficient Variation 13.5 % (11.7-14.2); RDW Standard Deviation 44.2 fL (35.1-46.3); Red Blood Cell Count 4.05 M/mm3 (3.80-5.20); White Blood Cell Count 23.23 K/mm3 (4.00-11.30); pH Blood Venous 7.29 (7.34-7.37)
[2024-09-27 17:58] LABS: International Normalized Ratio 1.02; Prothrombin Time Results 10.9 Sec (9.7-11.5)
[2024-09-27 18:05] LABS: Albumin, Blood 3.5 g/dL (3.4-5.0); Albumin/Globulin Ratio 0.7 (0.8-1.8); Bilirubin, Total 0.4 mg/dL (0.1-1.0); Calcium, Blood 9.1 mg/dL (8.5-10.1); Creatinine, Blood 0.79 mg/dL (0.40-1.00); Phosphorus, Blood 4.1 mg/dL (2.5-4.9); Potassium, Blood 3.6 mmol/L (3.5-5.5); Total Protein, Blood 8.5 g/dL (6.4-8.2)
[2024-09-27 18:12] LABS: BAND PERCENT MAN 1 % (0-8); BASOPHILS PERCENT MAN 0 % (0-2); EOSINOPHILS ABSOLUTE MAN 1.39 K/mm3 (0.00-0.68); EOSINOPHILS PERCENT MAN 6 % (0-6); LYMPHOCYTES % ATYPICAL MANUAL 1 % (0-0); LYMPHOCYTES ABSOLUTE MAN 4.41 K/mm3 (0.84-5.20); LYMPHOCYTES PERCENT MAN 18 % (21-46); METAMYELOCYTE ABSOLUTE MAN 0.23 K/mm3 (0.00-0.00); METAMYELOCYTE PERCENT MAN 1 % (0-0); MONOCYTES ABSOLUTE MAN 1.39 K/mm3 (0.16-1.47); MONOCYTES PERCENT MAN 6 % (4-13); NEUTROPHILS ABSOLUTE MAN 15.79 K/mm3 (1.96-9.15); SEG NEUTROPHILS PERCENT MAN 67 % (41-73); TOTAL CELLS COUNTED 100
[2024-09-27 18:23] LABS: Influenza A, PCR NEGATIVE (NEGATIVE); Influenza B, PCR NEGATIVE (NEGATIVE); Resp Syncytial Virus, PCR NEGATIVE (NEGATIVE); SARS-Cov-2 (COVID-19) PCR, MMC NEGATIVE (NEGATIVE)
[2024-09-27] MEDS ORDERED: Albuterol 2.5 MG/3 ML VIAL INH PRN (19:35)
[2024-09-27] MEDS ORDERED: Ondansetron HCl 2 MG / ML 2ML Vial IV PRN (19:40)
[2024-09-27] MEDS ORDERED: HYDROcodone 5-APAP 325 TAB PO PRN (19:40)
[2024-09-27] MEDS ORDERED: Ipratropium/Albuterol SulF 2.5-0.5MG/3 ML Amp INH SCH (19:40)
[2024-09-27] MEDS ORDERED: Azithromycin 500 MG in NS 250 ML IV ONE (20:00)
[2024-09-27] MEDS ORDERED: Furosemide 10 MG/ML 4ML Vial IV SCH (20:00)
[2024-09-27] MEDS ORDERED: Magnesium Sulf 2 GM/Water 50ML 50 ML IV STA (20:43)
[2024-09-27 20:50] LABS: Base Excess Venous -0.3 mmol/L; PCO2 Venous 44.8 mmHg (38-42); pH Blood Venous 7.36 (7.34-7.37)
[2024-09-27] MEDS ORDERED: Dose Adjust by Pharmacy XX STA (20:52)
[2024-09-27] MEDS ORDERED: Heparin Sodium,Porcine/0.5 NS 500 ML IV SCH (20:55)
[2024-09-27] MEDS ORDERED: Heparin Sodium 5000 Units/ML 1ML MDV IV ONE (20:55)
[2024-09-27 21:10] VITALS: BP 157/123
[2024-09-27 22:14] LABS: Adenovirus Not Detected (NOT DETECT); Coronavirus 229E Not Detected (NOT DETECT); Coronavirus HKU1 Not Detected (NOT DETECT); Coronavirus NL63 Not Detected (NOT DETECT)
[2024-09-27 22:15] LABS: Bordetella pertussis Not Detected (NOT DETECT); Chlamydophila pneumoniae Not Detected (NOT DETECT); Coronavirus OC43 Not Detected (NOT DETECT); Human Metapneumovirus Not Detected (NOT DETECT); Human Rhinovirus/Enterovirus Not Detected (NOT DETECT); Influenza A/2009-H1 Not Detected (NOT DETECT); Influenza A/H1 Not Detected (NOT DETECT); Influenza A/H3 Not Detected (NOT DETECT); Influenza B Not Detected (NOT DETECT); Mycoplasma pneumoniae Not Detected (NOT DETECT); Parainfluenza Virus 1 Not Detected (NOT DETECT); Parainfluenza Virus 2 Not Detected (NOT DETECT); Parainfluenza Virus 3 Not Detected (NOT DETECT); Parainfluenza Virus 4 Not Detected (NOT DETECT); Respiratory Syncytial Virus Not Detected (NOT DETECT); SARS-Cov-2 (COVID-19), BioFire Not Detected (NOT DETECT)
[2024-09-28] VITALS (7 sets, daily range): BP systolic 111–132; BP diastolic 68–86
[2024-09-28 01:05] LABS: Source, Urine Clean Catch
[2024-09-28 01:10] LABS: Bilirubin, Urine Neg (Neg); Blood, Urine Neg (Neg); Glucose Qualitative, Urine Neg (Neg); Ketones, Urine Neg (Neg); Leukocyte Esterase, Urine Neg (Neg); Nitrite, Urine Neg (Neg); Protein, Urine Neg (Neg); Urobilinogen, Urine NORM (Normal)
[2024-09-28 01:14] LABS: Appearance, Urine Clear (Clear); Color, Urine Yellow (P-Yellow)
[2024-09-28 01:36] LABS: U Amphetamine Screen Not Detected; U Barbituate Screen Not Detected; U Benzodiazapine Screen DETECTED; U Buprenorphine Screen Not Detected; U Cannabinoids Screen Not Detected; U Cocaine Screen Not Detected; U Methadone Screen Not Detected; U Methamphetamine Screen Not Detected; U Opiates Screen Not Detected; U Oxycodone Screen Not Detected; U Phencyclidine Screen Not Detected
[2024-09-28 04:28] LABS: Hematocrit 33.5 % (33.0-51.0); Hemoglobin 11.4 g/dL (11.5-16.0); Mean Corpuscular HGB 30.6 pg (26.0-34.0); Mean Corpuscular Volume 90 fL (80-100); Mean Platelet Volume 8.5 fL (9.1-12.4); Platelet Count 331 K/mm3 (150-400); RDW Coefficient Variation 13.5 % (11.7-14.2); RDW Standard Deviation 43.8 fL (35.1-46.3); Red Blood Cell Count 3.73 M/mm3 (3.80-5.20); White Blood Cell Count 14.88 K/mm3 (4.00-11.30)
[2024-09-28 04:55] LABS: Bun/Creatinine Ratio 21.3 (12.0-20.0); Creatinine, Blood 0.8 mg/dL (0.40-1.00); Magnesium, Blood 2.6 mg/dL (1.6-2.4); Potassium, Blood 3.4 mmol/L (3.5-5.5)
--- NOTE | 2024-09-28 06:33 | NUR ---
PT HAS BEEN SITTING AT THE EDGE OF THE BED THE WHOLE SHIFT.PT STATES THAT SHE IS AFRAID TO LAY DOWN DUE TO HER BREATHING.REPORTS ANXIETY REGARDING HOSPITALIZATION.PT'S BREATHING HAS IMPROVED PROGRESSIVELY THROUGHOUT THE SHIFT,NO HYPERVENTILATION NOTED THIS MORNING.HR DOWN TO 80'S AND 90'S.TROPONINS ELEVATED,PT DENIES CHEST PAIN/PRESSURE.ON HEPARIN GTT AT 15UNITS/KG/HR,INFUSING AT 24ML/HR.LASIX GIVEN ORDERED.PT HAS BEEN GETTING UP TO THE BEDSIDE COMMODE WITH ONE ASSIST.PRN PAIN MEDS GIVEN PER PT'S REQUEST ORDERED FOR CHRONIC BACK AND NECK PAIN.CALL LIGHT AND PT'S ITEMS WITHIN REACH.PT DENIES PAIN ,DENIES NEEDS AT THIS TIME.
[2024-09-28] MEDS ORDERED: MONT10T PO (07:40)
[2024-09-28] MEDS ORDERED: Potassium Chloride 10 Meq Tablet SA PO ONE (08:05)
[2024-09-28] MEDS ORDERED: Enoxaparin 40 MG/0.4 ML SYR SC SCH ×3 (09:00→15:00)
[2024-09-28] MEDS ORDERED: Aspirin 81 MG Chew PO SCH (09:00)
--- NOTE | 2024-09-28 09:00 | NUR ---
AM NOTE: PATIENT ALERT AND ORIENTED X4. ANXIOUS. SITTING ON EDGE OF BED THIS AM WEARING BIPAP. MOVING ALL EXTREMITIES AND FOLLOWING COMMANDS. SBA TO BSC AND RECLINER. DENIES NUMBNESS/TINGLING. HISTORY OF BLINDNESS IN RIGHT EYE. TELE SHOWING SR/ST WITH HR 80-110'S. DENIES CHEST PAIN/PRESSURE/PALPITATIONS. EDEMA NOTED TO BLE. HEPARIN GTT INFUSING PER EMAR. CARDIOLOGY CONSULT IN PLACE. PLAN FOR ECHO TODAY. DR. HORN TO BEDSIDE AND PATIENT OKAY TO EAT. BIPAP SETTINGS 12/5 AND 40% FIO2. WHEEZING HEARD THROUGHOUT. BREATHING TREATMENTS PER RT. SATING ABOVE 95% ON 3L NASAL CANNULA. PATIENT HAVING ANXIETY WITH SHORTNESS OF BREATH AND UNABLE TO LAY FLAT. DR. CARLIN UPDATED AND PO/IV ANXIETY MEDICATION GIVEN. DDIMER DRAWN AND PLAN FOR CT PE STUDY. BOWEL TONES PRESENT. DENIES ABDOMINAL PAIN/NAUSEA. UP TO BSC TO VOID. STRICT INTAKE AND OUTPUT. PATIENT DENIES BREAKFAST THIS AM. DRINKING WATER. SKIN C/D/I. UP TO RECLINER WITH ASSISTANCE. BED BATH COMPLETED THIS AM. FAMILY AT BEDSIDE AND UPDATED BY THIS RN. SITTING IN RECLINER AT THIS TIME WITH CALL LIGHT IN REACH.
[2024-09-28] MEDS ORDERED: LORazepam 0.5 MG Tab PO PRN (10:20)
[2024-09-28] MEDS ORDERED: Dose Adjust by Pharmacy XX STA (11:36)
[2024-09-28] MEDS ORDERED: LORazepam 2 MG/ML 1ML Injection IV PRN (11:40)
[2024-09-28] MEDS ORDERED: OxyCODONE 10/Acetamin 325 TABLET PO PRN (14:15)
[2024-09-28] MEDS ORDERED: ALBU90OI INH (14:20)
[2024-09-28] MEDS ORDERED: Methotrexate Sod 2.5 MG Tab PO SCH (14:20)
[2024-09-28] MEDS ORDERED: GABA300 PO (14:34)
[2024-09-28] MEDS ORDERED: GuaiFENesin 600 MG TabCR PO SCH (15:00)
[2024-09-28] MEDS ORDERED: HydroCHLOROthiazide 25 mg Tab PO SCH ×2 (15:00)
[2024-09-28] MEDS ORDERED: Losartan Potassium 50 MG Tab PO SCH (15:00)
[2024-09-28] MEDS ORDERED: Atorvastatin 10 MG Tab PO SCH (15:00)
--- NOTE | 2024-09-28 17:45 | NUR ---
SHIFT SUMMARY: PATIENT REMAINS ALERT AND ORIENTED. UP TO RECLINER MOST OF THE SHIFT. TELE SHOWING SR WITH HR 90'S. WEARING 3L NASAL CANNULA SATING ABOVE 95%. BIPAP ON STANDBY. INTERMIT WHEEZING, COUGHING. RT BREATHING TREATMENTS THROUGHOUT THE DAY. REFUSED BREAKFAST AND LUNCH. FAMILY BROUGHT PATIENT IN DINNER. INTERMIT PAIN RELATED TO RA. MEDICATED PER EMAR. UP TO BSC WITH SBA. CALL LIGHT IN REACH. DENIES NEEDS AT THIS TIME.
[2024-09-28] MEDS ORDERED: Gabapentin 300 MG Cap PO SCH (21:00)
[2024-09-28] MEDS ORDERED: Azithromycin 500 MG in NS 250 ML IV SCH (21:00)
[2024-09-28] MEDS ORDERED: Metoprolol Succinate 25 MG TABCR PO SCH (21:00)
[2024-09-28] MEDS ORDERED: Lactobacil 2-S.Thermo-Bifido 1 1 Cap PO SCH (21:00)
[2024-09-28] MEDS ORDERED: CefTRIAXone Sodium 1,000 MG in NS 100 ML IV SCH (21:00)
[2024-09-29 04:02] VITALS: BP 121/77
--- NOTE | 2024-09-29 05:06 | NUR ---
SHIFT SUMMARY NO ACUE CHANGES THIS SHIFT. VSS. ON 2-3L NC. SPO2 DIFFICULT TO OBTAIN WITH PERFUSION ISSUES BUT GENERALLY SHOWS SPO2 >92%. PT HAS BEEN ABLE TO EXPECTORATE MINIMAL SPUTUM AMOUNTS. DESPITE SAYING SHE HASN'T BEEN ABLE TO REST MUCH RECENTLY, PT HAS PRESENTED RESTING AEB SNOIN RESIRATIONS FOR 2-3HOURS THIS SHIFT. PT HAS NOT REQUIRED BIPAP THIS SHIFTBUT REMAINS AT BEDSIDE IN CASE. OTHERWISE, PT INDEPENDEN IN ROOMWITH MINOR SBA FOR COMOD. CALL LIGHT WITHIN REACH.
[2024-09-29 05:48] LABS: BASOPHILS ABSOLUTE AUTO 0.07 K/mm3 (0.00-0.23); BASOPHILS PERCENT AUTO 1 % (0-2); EOSINOPHILS ABSOLUTE AUTO 0.51 K/mm3 (0.00-0.68); EOSINOPHILS PERCENT AUTO 4 % (0-6); Hematocrit 33.6 % (33.0-51.0); IMMATURE GRAN ABSOLUTE AUTO 0.06 K/mm3 (0.00-0.10); IMMATURE GRAN PERCENT AUTO 1 % (0-1); LYMPHOCYTES ABSOLUTE AUTO 2.34 K/mm3 (0.84-5.20); LYMPHOCYTES PERCENT AUTO 19 % (21-46); MONOCYTES ABSOLUTE AUTO 0.97 K/mm3 (0.16-1.47); MONOCYTES PERCENT AUTO 8 % (4-13); Mean Corpuscular HGB 30.6 pg (26.0-34.0); Mean Corpuscular HGB Conc 32.7 g/dL (31.5-36.5); Mean Corpuscular Volume 93 fL (80-100); Mean Platelet Volume 9.4 fL (9.1-12.4); NEUTROPHILS ABSOLUTE AUTO 8.45 K/mm3 (1.96-9.15); NEUTROPHILS PERCENT AUTO 68 % (41-73); Platelet Count 321 K/mm3 (150-400); RDW Standard Deviation 47.8 fL (35.1-46.3)
[2024-09-29 06:04] LABS: Bun/Creatinine Ratio 18.1 (12.0-20.0); Calcium, Blood 8.7 mg/dL (8.5-10.1); Creatinine, Blood 0.99 mg/dL (0.40-1.00); Potassium, Blood 3.5 mmol/L (3.5-5.5)
[2024-09-29 07:57] VITALS: BP 99/68
[2024-09-29] MEDS ORDERED: Meloxicam 7.5 MG Tab PO SCH (09:00)
[2024-09-29] MEDS ORDERED: Leflunomide 20 MG Tab PO SCH (09:00)
[2024-09-29] MEDS ORDERED: Empagliflozin 10 MG TAB PO SCH (09:00)
[2024-09-29] MEDS ORDERED: Montelukast Sodium 10 MG Tab PO SCH (09:00)
[2024-09-29 11:58] VITALS: BP 108/76
[2024-09-29] MEDS ORDERED: Gabapentin 300 MG Cap PO SCH (12:00)
--- NOTE | 2024-09-29 12:23 | NUR ---
Leonor sitting on side of bed, eating lunch. States she is recovering after having a coughing fit a few minutes ago.
[2024-09-29] MEDS ORDERED: Sennosides 8.6 MG Tab PO PRN (16:15)
[2024-09-29 17:20] VITALS: BP 104/69
--- NOTE | 2024-09-29 17:23 | NUR ---
weaned pt down to 1 l/min of O2 from 2.
[2024-09-29 20:00] VITALS: BP 129/82
[2024-09-30] VITALS: BP 110/76
[2024-09-30 04:00] VITALS: BP 126/81
[2024-09-30 04:38] LABS: BASOPHILS PERCENT AUTO 1 % (0-2); EOSINOPHILS ABSOLUTE AUTO 1.62 K/mm3 (0.00-0.68); EOSINOPHILS PERCENT AUTO 16 % (0-6); Hematocrit 35.1 % (33.0-51.0); Hemoglobin 11.4 g/dL (11.5-16.0); IMMATURE GRAN ABSOLUTE AUTO 0.04 K/mm3 (0.00-0.10); IMMATURE GRAN PERCENT AUTO 0 % (0-1); LYMPHOCYTES ABSOLUTE AUTO 2.93 K/mm3 (0.84-5.20); LYMPHOCYTES PERCENT AUTO 29 % (21-46); MONOCYTES ABSOLUTE AUTO 0.88 K/mm3 (0.16-1.47); MONOCYTES PERCENT AUTO 9 % (4-13); Mean Corpuscular HGB 29.8 pg (26.0-34.0); Mean Corpuscular HGB Conc 32.5 g/dL (31.5-36.5); Mean Corpuscular Volume 92 fL (80-100); Mean Platelet Volume 8.5 fL (9.1-12.4); NEUTROPHILS ABSOLUTE AUTO 4.48 K/mm3 (1.96-9.15); NEUTROPHILS PERCENT AUTO 45 % (41-73); Platelet Count 340 K/mm3 (150-400); RDW Coefficient Variation 13.7 % (11.7-14.2); RDW Standard Deviation 46.4 fL (35.1-46.3); Red Blood Cell Count 3.83 M/mm3 (3.80-5.20); White Blood Cell Count 10.05 K/mm3 (4.00-11.30)
[2024-09-30 04:59] LABS: Albumin, Blood 3.1 g/dL (3.4-5.0); Albumin/Globulin Ratio 0.7 (0.8-1.8); Bilirubin, Total 0.2 mg/dL (0.1-1.0); Bun/Creatinine Ratio 20.4 (12.0-20.0); Calcium, Blood 8.8 mg/dL (8.5-10.1); Creatinine, Blood 1.03 mg/dL (0.40-1.00); Globulin, Blood 4.5 g/dL (2.2-4.0); Potassium, Blood 3.3 mmol/L (3.5-5.5); Total Protein, Blood 7.6 g/dL (6.4-8.2)
--- NOTE | 2024-09-30 05:57 | NUR ---
SHIFT SUMMARY PT HAS TOLERATED SHIFT WELL. PT HAS BEEN ABLE TO REST COMFORTABLY IN ROOM THROUGH MOST OF WELL TESTER AND IS CURRENTLY ON RA SATS 96%. PT IS DIFFICULT TO GET AN ACCURATE SPO2 ON BUT ABLE TO GET READING WHILE PT REMAINS STILL. PT APPEARS TO BE IN GOOD MOOD AT THIS TIME AND DOES NOT STATE ANY COMPLAINTS TO THIS NURSE. NO SIGNIFICANT EVENTS OCCURED OVERNIGHT. WILL CONTINUE TO MONITOR UNTIL REPORT PASSED TO DAY SHIFT TEAM.
[2024-09-30] MEDS ORDERED: Potassium Chloride 10 Meq Tablet SA PO ONE (07:40)
[2024-09-30 08:28] VITALS: BP 134/84
[2024-09-30] MEDS ORDERED: HYDROcodone 7.5-APAP 325 TAB PO PRN (08:55)
--- NOTE | 2024-09-30 09:34 | NUR ---
Pt is pleasant, conversant and cheerful this morning. States that she is still having some anxiety. Respirations are slightly labored, and she says that she has some shortness of breath when she gets up and walks around, but she is attempting to gradually increase her activity tolerance and will start walking to the bathroom instead of just using the bedside commode. She is on room air, wheezes noted throughout the lung higgins. Given NOrco for chronic pain this morning. Telemetry removed as she is now medical status without telemetry. Dr. Mario was here and rounded on the pt. Dental hygienist also saw the pt.
[2024-09-30 13:45] VITALS: BP 128/74
--- NOTE | 2024-09-30 13:51 | NUR ---
continues to tolerate room air and activity of walking around the room and to the toilet in the bathroom. States she is having a pretty good day.
--- NOTE | 2024-09-30 18:30 | NUR ---
Telephone report given to LORENE Mercedes and pt was transported in her bed to room 353 without incident.
--- NOTE | 2024-09-30 18:39 | NUR ---
PT TX FROM PCU 16 TO ROOM 353 AT 1815, BED TO BED TX. PT IS A/O X4, VERBAL AND PLEASANT. ORIENTED TO ROOM SET UP AND CALL LIGHT. PT HAS FLUIDS, STATES SHE JUST ATE DINNER IN PCU. LUNGS FERNANDES T/O SCATTERED WHEEZE, NO DYSPNEA CURRENTLY. ABLE TO SPEAK IN FULL SENTENCES. STATES SHE IS DOING MUCH BETTER TODAY BUT GLAD TO BE STAYING ANOTHER NITHT. WILL REPOET TO EMELINA RN
[2024-09-30] MEDS ORDERED: NS 250 ML IV PRN (19:55)
[2024-09-30 20:06] VITALS: BP 112/76
[2024-10-01 04:27] VITALS: BP 112/76
--- NOTE | 2024-10-01 04:35 | NUR ---
SHIFT SUMMARY ADMIT SINCE 09/27/24 FOR STREP PNA AND ARF. FULL CODE. PREVIOUS BIPAP, NOW ON RA. CONTINUED DIFFUSE WHEEZE + INSPIRATORY CRACKLES. STEADY GAIT, A&OX4, INDEPENDENT IN ADLS, CONTINENT.
[2024-10-01 07:52] VITALS: BP 108/76
[2024-10-01] MEDS ORDERED: AMOCLA500 PO (14:26)
[2024-10-01] MEDS ORDERED: BUDESONIDE-FO10.2 G3 IH (14:27)
[2024-10-01] MEDS ORDERED: JARDIANCE10 MG PO (14:28)
[2024-10-01] MEDS ORDERED: IPRAT-ALBUT 0.5-3 ML INH (14:29)
[2024-10-01] MEDS ORDERED: VISBIOME 112.51 EACH PO (14:30)
[2024-10-01] MEDS ORDERED: LOSARTAN-HCTZ1 EACH PO (14:31)
--- NOTE | 2024-10-01 15:31 | NUR ---
ASSUMED CARE A/O X 4 VERY PLEASENT AND COOPERATIVE PT, HOPING TO GO HOME TODAY IF POSSIBLE. HAS MINIMAL C/O PAIN HAS NO DISTRESS. DR CARLIN SAW PT AND GAVE DISCHARGE ORDERS, DC ORDERS IMPLEMENTED, IV DCED PT TAKEN DOWNSTAIR BY DIRECTOR PRISON.
== END 2024-10-01 15:16 | disposition home or self-care (01) | DRG 871 ==
LOC: ER 17:08 → PCU 19:34 → MEDS 19:34 → PCU 21:10 → MEDS 09-30 18:12
PROVIDERS: Family Medicine; Nurse Practitioner Acute Care; Student in an Organized Health Care Education/Training Program; ADMIT Internal Medicine
PROC: 5A09457 Assistance with Respiratory Ventilation, 24-96 Consecutive Hours, Continuous Positive Airway Pressure (ICD-10-PCS; principal; 2024-09-27)
PROC: 3E03329 Introduction of Other Anti-infective into Peripheral Vein, Percutaneous Approach (ICD-10-PCS; 2024-09-27)
DX: A41.9 Sepsis, unspecified organism (principal); I21.A1 Myocardial infarction type 2; J13 Pneumonia due to Streptococcus pneumoniae; J96.01 Acute respiratory failure with hypoxia; J96.02 Acute respiratory failure with hypercapnia; I50.23 Acute on chronic systolic (congestive) heart failure; E87.21 Acute metabolic acidosis; I42.0 Dilated cardiomyopathy; Z68.41 Body mass index [BMI] 40.0-44.9, adult; R65.20 Severe sepsis without septic shock; F41.9 Anxiety disorder, unspecified; E78.5 Hyperlipidemia, unspecified; I11.0 Hypertensive heart disease with heart failure; E87.6 Hypokalemia; M06.9 Rheumatoid arthritis, unspecified; F32.A Depression, unspecified; E66.813 Obesity, class 3; Z79.899 Other long term (current) drug therapy; Z79.82 Long term (current) use of aspirin; Z79.891 Long term (current) use of opiate analgesic; H40.9 Unspecified glaucoma; Z98.41 Cataract extraction status, right eye; Z86.19 Personal history of other infectious and parasitic diseases; Z98.890 Other specified postprocedural states
CPT/HCPCS: 0202U; 0241U; 36415; 71045; 71260; 80048; 80053; 81003; 82803; 83605; 83735; 83880; 84100; 84145; 84484; 85025; 85027; 85379; 85520; 85610; 85730; 87449; 93005; 93010; 93306; 94640; 94644; 94660; 94664; 94760; 94762; 96365; 96375; 99285-25; A9270; J0456; J0696; J1644; J1650; J1938; J2060; J2919; J3475; J7050; Q9967